=== PATIENT | female | born 1950 | race Hispanic/Latino ===

== ENCOUNTER → 2023-03-28 | Emergency (ER) | payer OTHER ==
[~2023-03-28] MED LIST: MAGNESIUM SULFATE 1 gm IVPB 1 GM/100 ML BAG IV ONE; NA CHLORIDE 0.9% 500 ML ONE; cloNIDine HCL 0.1 MG TAB ONE
--- OUTSIDE RECORDS SUMMARY | 2023-03-28 16:22 | XMS REPORT | Continuity of Care Document ---
Author Name Unknown Address [address] [facility] [address] [place] [address] [facility] Address [address] [facility] 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 Name Role Phone SIRENA EVERETT Primary Care Physician YAZAN Larson Attending Clinician Unavailab YAZAN Laird Attending Clinician Unavailab lal Doctor Unassigned, Rodney Attending Clinician U Sirena Oconnor NP Attending Clinician Pob, [facility] Main Attending Clinician SIRENA Perales Attending Clinician Gila lal Payers Payer Name Policy Type Policy Number Effective Date Expirati on Date Source MEDICARE PART A \\T\\ B [id number] 2014 00:00:00 [facility] [id number] 2023 00:00:00 [place] [id number] 2023 00:00:00 Problems Condition Name Condition Details Condition Category Status Onset Date Resolution Date Last Treatment Date Treating Clinician Comments Source Type 2 diabetes mellitus without complicati on, with long-term current use of insulin Type 2 diabetes mellitus without complicati on, with long-term current use of insulin Disease Active 2022-04 00:00: 00 [facility] Rheumatoid arthritis involving multiple sites, unspecifie d whether rheumatoid factor present Rheumatoid arthritis involving multiple sites, unspecifie d whether rheumatoid factor present Disease Active 2022-04 00:00: 00 [facility] Allergies, Adverse Reactions, Alerts Allergy Name Allergy Type Status Severity Reaction(s) Onset Date Inactive Date Treating Clinician Comments Source NO KNOWN ALLERGIE S Drug Class Active [facility] Social History Social Habit Start Date Stop Date Quantity Comments [facility] use and exposure 2023-03-13 00:00:00 2023-03-13 00:00:00 Smokeless tobacco non-user [facility] Alcohol intake 2023-03-13 00:00:00 2023-03-13 00:00:00 Ex-drinker (finding) [facility] History of Social function 2023-03-13 00:00:00 2023-03-13 00:00:[address] [facility] Sex Assigned At 1950 00:00:00 1950 00:00:[address] [facility] Smoking Status Start Date Stop Date Source Tobacco smoking consumption unknown [facility] Never smoked tobacco [facility] Medications Ordered Medication Name Filled Medication Name Start Date Stop Date Current Medication? Ordering Clinician Indication Dosage Frequency Signature (SIG) Comments Components Source benzonatate (TESSALON PERLES) 100 mg capsule 2022-04 00:00: 00 Yes [id number] 100mg Take 1 capsule by mouth every 8 (eight) hours as needed for Cough. [facility] pregabalin 25 mg capsule 2022-04 00:00: 00 Yes [id number] 25mg Take 1 capsule by mouth in the morning and 1 capsule at noon and 1 capsule in the evening. [facility] albuterol 90 mcg/actuati on inhaler 2022-04 00:00: 00 Yes [id number] 2{puff} Inhale 2 Puffs every 4 (four) hours as needed for Wheezing, Shortness of Breath or Bronchospa sm. [facility] guaiFENesin (MUCINEX FAST-MAX CHEST-CONGE ST) 100 mg/5 mL solution 2022-04 00:00: 00 Yes [id number] 200mg Take 10 mL by mouth every 4 (four) hours as needed for Cough. [facility] benzonatate (TESSALON PERLES) 100 mg capsule 2022-04 00:00: 00 Yes [id number] 100mg Take 1 capsule by mouth every 8 (eight) hours as needed for Cough. [facility] pregabalin 25 mg capsule 2022-04 00:00: 00 Yes [id number] 25mg Take 1 capsule by mouth in the morning and 1 capsule at noon and 1 capsule in the evening. [facility] albuterol 90 mcg/actuati on inhaler 2022-04 00:00: 00 Yes [id number] 2{puff} Inhale 2 Puffs every 4 (four) hours as needed for Wheezing, Shortness of Breath or Bronchospa sm. [facility] guaiFENesin (MUCINEX FAST-MAX CHEST-CONGE ST) 100 mg/5 mL solution 2022-04 00:00: 00 Yes [id number] 200mg Take 10 mL by mouth every 4 (four) hours as needed for Cough. [facility] traMADoL 50 mg tablet 2022-04 00:00: 00 Yes [id number] 50mg Take 1 tablet by mouth 2 (two) times daily with meals as needed for Pain (scale 7-10). Indication s: chronic pain, RA/OA [facility] traMADoL 50 mg tablet 2022-04 00:00: 00 Yes [id number] 50mg Take 1 tablet by mouth 2 (two) times daily with meals as needed for Pain (scale 7-10). Indication s: chronic pain, RA/OA [facility] traMADoL 50 mg tablet 2022-04 00:00: 00 Yes [id number] 50mg Take 1 tablet by mouth 2 (two) times daily with meals as needed for Pain (scale 7-10). Indication s: chronic pain, RA/OA [facility] traMADoL 50 mg tablet 2022-04 00:00: 00 Yes [id number] 50mg Take 1 tablet by mouth 2 (two) times daily with meals as needed for Pain (scale 7-10). Indication s: chronic pain, RA/OA [facility] traMADoL 50 mg tablet 2022-04 00:00: 00 Yes [id number] 50mg Take 1 tablet by mouth 2 (two) times daily with meals as needed for Pain (scale 7-10). Indication s: chronic pain, RA/OA [facility] hydroxychlo roquine 200 mg tablet 2022-04 00:00: 00 Yes [id number] 200mg Take 1 tablet by mouth in the morning. [facility] tra[facility] mg tablet 2022-04 00:00: 00 Yes [id number] 50mg Take 1 tablet by mouth 2 (two) times daily with meals as needed for Pain (scale 7-10). Indication s: chronic pain, RA [facility] meloxicam 15 mg tablet 2022-04 00:00: 00 Yes [id number] 15mg Take 1 tablet by mouth once daily as needed for Pain or Inflammati on. [facility] Diclofenac Sodium (VOLTAREN) 1 % gel 2022-04 00:00: 00 Yes [id number] Take 2-4 grams three times a day as needed for pain [facility] hydroxychlo roquine 200 mg tablet 2022-04 00:00: 00 Yes [id number] 200mg Take 1 tablet by mouth in the morning. [facility] traMADoL 50 mg tablet 2022-04 00:00: 00 Yes [id number] 50mg Take 1 tablet by mouth 2 (two) times daily with meals as needed for Pain (scale 7-10). Indication s: chronic pain, RA [facility] meloxicam 15 mg tablet 2022-04 00:00: 00 Yes [id number] 15mg Take 1 tablet by mouth once daily as needed for Pain or Inflammati on. [facility] Diclofenac Sodium (VOLTAREN) 1 % gel 2022-04 00:00: 00 Yes [id number] Take 2-4 grams three times a day as needed for pain [facility] hydroxychlo roquine 200 mg tablet 2022-04 00:00: 00 Yes [id number] 200mg Take 1 tablet by mouth in the morning. [facility] traMADoL 50 mg tablet 2022-04 00:00: 00 Yes [id number] 50mg Take 1 tablet by mouth 2 (two) times daily with meals as needed for Pain (scale 7-10). Indication s: chronic pain, RA [facility] meloxicam 15 mg tablet 2022-04 00:00: 00 Yes [id number] 15mg Take 1 tablet by mouth once daily as needed for Pain or Inflammati on. [facility] Diclofenac Sodium (VOLTAREN) 1 % gel 2022-04 00:00: 00 Yes [id number] Take 2-4 grams three times a day as needed for pain [facility] hydroxychlo roquine 200 mg tablet 2022-04 00:00: 00 Yes [id number] 200mg Take 1 tablet by mouth in the morning. [facility] tra[facility]AD[facility] 50 mg tablet 2022-04 00:00: 00 Yes [id number] 50mg Take 1 tablet by mouth 2 (two) times daily with meals as needed for Pain (scale 7-10). Indication s: chronic pain, RA [facility] meloxicam 15 mg tablet 2022-04 00:00: 00 Yes [id number] 15mg Take 1 tablet by mouth once daily as needed for Pain or Inflammati on. [facility] Diclofenac Sodium (VOLTAREN) 1 % gel 2022-04 00:00: 00 Yes [id number] Take 2-4 grams three times a day as needed for pain [facility] hydroxychlo roquine 200 mg tablet 2022-04 00:00: 00 Yes [id number] 200mg Take 1 tablet by mouth in the morning. [facility] traMADoL 50 mg tablet 2022-04 00:00: 00 Yes [id number] 50mg Take 1 tablet by mouth 2 (two) times daily with meals as needed for Pain (scale 7-10). Indication s: chronic pain, RA [facility] mel[facility]am [facility] mg tablet 2022-04 00:00: 00 Yes [id number] 15mg Take 1 tablet by mouth once daily as needed for Pain or Inflammati on. [facility] Diclofenac Sodium (VOLTAREN) 1 % gel 2022-04 00:00: 00 Yes [id number] Take 2-4 grams three times a day as needed for pain [facility] hydroxychlo roquine 200 mg tablet 2022-04 00:00: 00 Yes [id number] 200mg Take 1 tablet by mouth in the morning. [facility] tra[facility] 50 mg tablet 2022-04 00:00: 00 Yes [id number] 50mg Take 1 tablet by mouth 2 (two) times daily with meals as needed for Pain (scale 7-10). Indication s: chronic pain, RA [facility] meloxicam 15 mg tablet 2022-04 00:00: 00 Yes [id number] 15mg Take 1 tablet by mouth once daily as needed for Pain or Inflammati on. [facility] Diclofenac Sodium (VOLTAREN) 1 % gel 2022-04 00:00: 00 Yes [id number] Take 2-4 grams three times a day as needed for pain [facility] hydroxychlo roquine 200 mg tablet 2022-04 00:00: 00 Yes [id number] 200mg Take 1 tablet by mouth in the morning. [facility] traMADoL 50 mg tablet 2022-04 00:00: 00 Yes [id number] 50mg Take 1 tablet by mouth 2 (two) times daily with meals as needed for Pain (scale 7-10). Indication s: chronic pain, RA [facility] meloxicam 15 mg tablet 2022-04 00:00: 00 Yes [id number] 15mg Take 1 tablet by mouth once daily as needed for Pain or Inflammati on. [facility] hydroxychlo roquine 200 mg tablet 2022-04 00:00: 00 Yes [id number] 200mg Take 1 tablet by mouth in the morning. [facility] traMADoL 50 mg tablet 2022-04 00:00: 00 Yes [id number] 50mg Take 1 tablet by mouth 2 (two) times daily with meals as needed for Pain (scale 7-10). Indication s: chronic pain, RA [facility] meloxicam 15 mg tablet 2022-04 00:00: 00 Yes [id number] 15mg Take 1 tablet by mouth once daily as needed for Pain or Inflammati on. [facility] Diclofenac Sodium (VOLTAREN) 1 % gel 2022-04 00:00: 00 Yes [id number] Take 2-4 grams three times a day as needed for pain [facility] hydroxychlo roquine 200 mg tablet 2022-04 00:00: 00 Yes [id number] 200mg Take 1 tablet by mouth in the morning. [facility] tra[facility] 50 mg tablet 2022-04 00:00: 00 Yes [id number] 50mg Take 1 tablet by mouth 2 (two) times daily with meals as needed for Pain (scale 7-10). Indication s: chronic pain, RA [facility] meloxicam 15 mg tablet 2022-04 00:00: 00 Yes [id number] 15mg Take 1 tablet by mouth once daily as needed for Pain or Inflammati on. [facility] Diclofenac Sodium (VOLTAREN) 1 % gel 2022-04 00:00: 00 Yes [id number] Take 2-4 grams three times a day as needed for pain [facility] hydroxychlo roquine 200 mg tablet 2022-04 00:00: 00 Yes [id number] 200mg Take 1 tablet by mouth in the morning. [facility] traMAD[facility] 50 mg tablet 2022-04 00:00: 00 Yes [id number] 50mg Take 1 tablet by mouth 2 (two) times daily with meals as needed for Pain (scale 7-10). Indication s: chronic pain, RA [facility] meloxicam 15 mg tablet 2022-04 00:00: 00 Yes [id number] 15mg Take 1 tablet by mouth once daily as needed for Pain or Inflammati on. [facility] Diclofenac Sodium (VOLTAREN) 1 % gel 2022-04 00:00: 00 Yes [id number] Take 2-4 grams three times a day as needed for pain [facility] hydroxychlo roquine 200 mg tablet 2022-04 00:00: 00 Yes [id number] 200mg Take 1 tablet by mouth in the morning. [facility] traMADoL 50 mg tablet 2022-04 00:00: 00 Yes [id number] 50mg Take 1 tablet by mouth 2 (two) times daily with meals as needed for Pain (scale 7-10). Indication s: chronic pain, RA [facility] meloxicam 15 mg tablet 2022-04 00:00: 00 Yes [id number] 15mg Take 1 tablet by mouth once daily as needed for Pain or Inflammati on. [facility] Diclofenac Sodium (VOLTAREN) 1 % gel 2022-04 00:00: 00 Yes [id number] Take 2-4 grams three times a day as needed for pain [facility] hydroxychlo roquine 200 mg tablet 2022-04 00:00: 00 Yes [id number] 200mg Take 1 tablet by mouth in the morning. [facility] meloxicam 15 mg tablet 2022-04 00:00: 00 Yes [id number] 15mg Take 1 tablet by mouth once daily as needed for Pain or Inflammati on. [facility] Diclofenac Sodium (VOLTAREN) 1 % gel 2022-04 00:00: 00 Yes [id number] Take 2-4 grams three times a day as needed for pain [facility] hydroxychlo roquine 200 mg tablet 2022-04 00:00: 00 Yes [id number] 200mg Take 1 tablet by mouth in the morning. [facility] meloxicam 15 mg tablet 2022-04 00:00: 00 Yes [id number] 15mg Take 1 tablet by mouth once daily as needed for Pain or Inflammati on. [facility] Diclofenac Sodium (VOLTAREN) 1 % gel 2022-04 00:00: 00 Yes [id number] Take 2-4 grams three times a day as needed for pain [facility] hydroxychlo roquine 200 mg tablet 2022-04 00:00: 00 Yes [id number] 200mg Take 1 tablet by mouth in the morning. [facility] mel[facility] mg tablet 2022-04 00:00: 00 Yes [id number] 15mg Take 1 tablet by mouth once daily as needed for Pain or Inflammati on. [facility] Diclofenac Sodium (VOLTAREN) 1 % gel 2022-04 00:00: 00 Yes [id number] Take 2-4 grams three times a day as needed for pain [facility] hydroxychlo roquine 200 mg tablet 2022-04 00:00: 00 Yes [id number] 200mg Take 1 tablet by mouth in the morning. [facility] mel[facility]am [facility] mg tablet 2022-04 00:00: 00 Yes [id number] 15mg Take 1 tablet by mouth once daily as needed for Pain or Inflammati on. [facility] Diclofenac Sodium (VOLTAREN) 1 % gel 2022-04 00:00: 00 Yes [id number] Take 2-4 grams three times a day as needed for pain [facility] hydroxychlo roquine 200 mg tablet 2022-04 00:00: 00 Yes [id number] 200mg Take 1 tablet by mouth in the morning. [facility] meloxicam 15 mg tablet 2022-04 00:00: 00 Yes [id number] 15mg Take 1 tablet by mouth once daily as needed for Pain or Inflammati on. [facility] Diclofenac Sodium (VOLTAREN) 1 % gel 2022-04 00:00: 00 Yes [id number] Take 2-4 grams three times a day as needed for pain [facility] hydroxychlo roquine 200 mg tablet 2022-04 00:00: 00 Yes [id number] 200mg Take 1 tablet by mouth in the morning. [facility] traMADoL 50 mg tablet 2022-04 00:00: 00 Yes [id number] 50mg Take 1 tablet by mouth 2 (two) times daily with meals as needed for Pain (scale 7-10). Indication s: chronic pain, RA [facility] mel[facility]am [facility] mg tablet 2022-04 00:00: 00 Yes [id number] 15mg Take 1 tablet by mouth once daily as needed for Pain or Inflammati on. [facility] traMADoL 50 mg tablet 2022-04 00:00: 00 02-22 00:00 :00 No [id number] 50mg Take 1 tablet by mouth 2 (two) times daily with meals as needed for Pain (scale 7-10). Indication s: chronic pain, RA [facility] aspirin (ADULT LOW DOSE ASPIRIN) 81 mg EC tablet 2022-04 00:00: 00 Yes [id number] 81mg Take 1 tablet by mouth in the morning. [facility] aspirin (ADULT LOW DOSE ASPIRIN) 81 mg EC tablet 2022-04 00:00: 00 Yes [id number] 81mg Take 1 tablet by mouth in the morning. [facility] aspirin (ADULT LOW DOSE ASPIRIN) 81 mg EC tablet 2022-04 00:00: 00 Yes [id number] 81mg Take 1 tablet by mouth in the morning. [facility] aspirin (ADULT LOW DOSE ASPIRIN) 81 mg EC tablet 2022-04 00:00: 00 Yes [id number] 81mg Take 1 tablet by mouth in the morning. [facility] aspirin (ADULT LOW DOSE ASPIRIN) 81 mg EC tablet 2022-04 00:00: 00 Yes [id number] 81mg Take 1 tablet by mouth in the morning. [facility] aspirin (ADULT LOW DOSE ASPIRIN) 81 mg EC tablet 2022-04 00:00: 00 Yes [id number] 81mg Take 1 tablet by mouth in the morning. [facility] aspirin (ADULT LOW DOSE ASPIRIN) 81 mg EC tablet 2022-04 00:00: 00 Yes [id number] 81mg Take 1 tablet by mouth in the morning. [facility] aspirin (ADULT LOW DOSE ASPIRIN) 81 mg EC tablet 2022-04 00:00: 00 Yes [id number] 81mg Take 1 tablet by mouth in the morning. [facility] aspirin (ADULT LOW DOSE ASPIRIN) 81 mg EC tablet 2022-04 00:00: 00 Yes [id number] 81mg Take 1 tablet by mouth in the morning. [facility] aspirin (ADULT LOW DOSE ASPIRIN) 81 mg EC tablet 2022-04 00:00: 00 Yes [id number] 81mg Take 1 tablet by mouth in the morning. [facility] aspirin (ADULT LOW DOSE ASPIRIN) 81 mg EC tablet 2022-04 00:00: 00 Yes [id number] 81mg Take 1 tablet by mouth in the morning. [facility] aspirin (ADULT LOW DOSE ASPIRIN) 81 mg EC tablet 2022-04 00:00: 00 Yes [id number] 81mg Take 1 tablet by mouth in the morning. [facility] aspirin (ADULT LOW DOSE ASPIRIN) 81 mg EC tablet 2022-04 00:00: 00 Yes [id number] 81mg Take 1 tablet by mouth in the morning. [facility] aspirin (ADULT LOW DOSE ASPIRIN) 81 mg EC tablet 2022-04 00:00: 00 Yes [id number] 81mg Take 1 tablet by mouth in the morning. [facility] aspirin (ADULT LOW DOSE ASPIRIN) 81 mg EC tablet 2022-04 00:00: 00 Yes [id number] 81mg Take 1 tablet by mouth in the morning. [facility] aspirin (ADULT LOW DOSE ASPIRIN) 81 mg EC tablet 2022-04 00:00: 00 Yes [id number] 81mg Take 1 tablet by mouth in the morning. [facility] aspirin (ADULT LOW DOSE ASPIRIN) 81 mg EC tablet 2022-04 00:00: 00 Yes [id number] 81mg Take 1 tablet by mouth in the morning. [facility] aspirin (ADULT LOW DOSE ASPIRIN) 81 mg EC tablet 2022-04 00:00: 00 Yes [id number] 81mg Take 1 tablet by mouth in the morning. [facility] aspirin (ADULT LOW DOSE ASPIRIN) 81 mg EC tablet 2022-04 00:00: 00 Yes [id number] 81mg Take 1 tablet by mouth in the morning. [facility] FARXIGA 10 mg tablet 2022-04 00:00: 00 Yes 10mg Take 1 tablet by mouth in the morning. [facility] pravastatin 40 mg tablet 2022-04 00:00: 00 Yes 40mg Take 1 tablet by mouth in the morning. [facility] FARXIGA 10 mg tablet 2022-04 00:00: 00 Yes 10mg Take 1 tablet by mouth in the morning. [facility] pravastatin 40 mg tablet 2022-04 00:00: 00 Yes 40mg Take 1 tablet by mouth in the morning. [facility] FARX[facility]A 10 mg tablet 2022-04 00:00: 00 Yes 10mg Take 1 tablet by mouth in the morning. [facility] FARXIGA 10 mg tablet 2022-04 00:00: 00 Yes 10mg Take 1 tablet by mouth in the morning. [facility] pravastatin 40 mg tablet 2022-04 00:00: 00 Yes 40mg Take 1 tablet by mouth in the morning. [facility] FARXIGA 10 mg tablet 2022-04 00:00: 00 Yes 10mg Take 1 tablet by mouth in the morning. [facility] pravastatin 40 mg tablet 2022-04 00:00: 00 Yes 40mg Take 1 tablet by mouth in the morning. [facility] FARXIGA 10 mg tablet 2022-04 00:00: 00 Yes 10mg Take 1 tablet by mouth in the morning. [facility] pravastatin 40 mg tablet 2022-04 00:00: 00 Yes 40mg Take 1 tablet by mouth in the morning. [facility] pravastatin 40 mg tablet 2022-04 00:00: 00 Yes 40mg Take 1 tablet by mouth in the morning. [facility] FARXIGA 10 mg tablet 2022-04 00:00: 00 Yes 10mg Take 1 tablet by mouth in the morning. [facility] pravastatin 40 mg tablet 2022-04 00:00: 00 Yes 40mg Take 1 tablet by mouth in the morning. [facility] FARXIGA 10 mg tablet 2022-04 00:00: 00 Yes 10mg Take 1 tablet by mouth in the morning. [facility] pravastatin 40 mg tablet 2022-04 00:00: 00 Yes 40mg Take 1 tablet by mouth in the morning. [facility] FARXIGA 10 mg tablet 2022-04 00:00: 00 Yes 10mg Take 1 tablet by mouth in the morning. [facility] pravastatin 40 mg tablet 2022-04 00:00: 00 Yes 40mg Take 1 tablet by mouth in the morning. [facility] FARXIGA 10 mg tablet 2022-04 00:00: 00 Yes 10mg Take 1 tablet by mouth in the morning. [facility] pravastatin 40 mg tablet 2022-04 00:00: 00 Yes 40mg Take 1 tablet by mouth in the morning. [facility] FARXIGA 10 mg tablet 2022-04 00:00: 00 Yes 10mg Take 1 tablet by mouth in the morning. [facility] pravastatin 40 mg tablet 2022-04 00:00: 00 Yes 40mg Take 1 tablet by mouth in the morning. [facility] FARXIGA 10 mg tablet 2022-04 00:00: 00 Yes 10mg Take 1 tablet by mouth in the morning. [facility] pravastatin 40 mg tablet 2022-04 00:00: 00 Yes 40mg Take 1 tablet by mouth in the morning. [facility] FARXIGA 10 mg tablet 2022-04 00:00: 00 Yes 10mg Take 1 tablet by mouth in the morning. [facility] pravastatin 40 mg tablet 2022-04 00:00: 00 Yes 40mg Take 1 tablet by mouth in the morning. [facility] FARXIGA 10 mg tablet 2022-04 00:00: 00 Yes 10mg Take 1 tablet by mouth in the morning. [facility] pravastatin 40 mg tablet 2022-04 00:00: 00 Yes 40mg Take 1 tablet by mouth in the morning. [facility] FARXIGA 10 mg tablet 2022-04 00:00: 00 Yes 10mg Take 1 tablet by mouth in the morning. [facility] pravastatin 40 mg tablet 2022-04 00:00: 00 Yes 40mg Take 1 tablet by mouth in the morning. [facility] FARXIGA 10 mg tablet 2022-04 00:00: 00 Yes 10mg Take 1 tablet by mouth in the morning. [facility] pravastatin 40 mg tablet 2022-04 00:00: 00 Yes 40mg Take 1 tablet by mouth in the morning. [facility] FARXIGA 10 mg tablet 2022-04 00:00: 00 Yes 10mg Take 1 tablet by mouth in the morning. [facility] pravastatin 40 mg tablet 2022-04 00:00: 00 Yes 40mg Take 1 tablet by mouth in the morning. [facility] FARXIGA 10 mg tablet 2022-04 00:00: 00 Yes 10mg Take 1 tablet by mouth in the morning. [facility] pravastatin 40 mg tablet 2022-04 00:00: 00 Yes 40mg Take 1 tablet by mouth in the morning. [facility] FARXIGA 10 mg tablet 2022-04 00:00: 00 Yes 10mg Take 1 tablet by mouth in the morning. [facility] pravastatin 40 mg tablet 2022-04 00:00: 00 Yes 40mg Take 1 tablet by mouth in the morning. [facility] NOVOLOG FLEXPEN U-100 INSULIN 100 unit/mL (3 mL) injection 2022-04 00:00: 00 Yes [facility] NOVOLOG FLEXPEN U-100 INSULIN 100 unit/mL (3 mL) injection 2022-04 00:00: 00 Yes [facility] NOVOLOG FLEXPEN U-100 INSULIN 100 unit/mL (3 mL) injection 2022-04 00:00: 00 Yes [facility] NOVOLOG FLEXPEN U-100 INSULIN 100 unit/mL (3 mL) injection 2022-04 00:00: 00 Yes [facility] NOVOLOG FLEXPEN U-100 INSULIN 100 unit/mL (3 mL) injection 2022-04 00:00: 00 Yes [facility] NOVOLOG FLEXPEN U-100 INSULIN 100 unit/mL (3 mL) injection 2022-04 00:00: 00 Yes [facility] NOVOLOG FLEXPEN U-100 INSULIN 100 unit/mL (3 mL) injection 2022-04 00:00: 00 Yes [facility] NOVOLOG FLEXPEN U-100 INSULIN 100 unit/mL (3 mL) injection 2022-04 00:00: 00 Yes [facility] NOVOLOG FLEXPEN U-100 INSULIN 100 unit/mL (3 mL) injection 2022-04 00:00: 00 Yes [facility] NOVOLOG FLEXPEN U-100 INSULIN 100 unit/mL (3 mL) injection 2022-04 00:00: 00 Yes [facility] NOVOLOG FLEXPEN U-100 INSULIN 100 unit/mL (3 mL) injection 2022-04 00:00: 00 Yes [facility] NOVOLOG FLEXPEN U-100 INSULIN 100 unit/mL (3 mL) injection 2022-04 00:00: 00 Yes [facility] NOVOLOG FLEXPEN U-100 INSULIN 100 unit/mL (3 mL) injection 2022-04 00:00: 00 Yes [facility] NOVOLOG FLEXPEN U-100 INSULIN 100 unit/mL (3 mL) injection 2022-04 00:00: 00 Yes [facility] NOVOLOG FLEXPEN U-100 INSULIN 100 unit/mL (3 mL) injection 2022-04 00:00: 00 Yes [facility] NOVOLOG FLEXPEN U-100 INSULIN 100 unit/mL (3 mL) injection 2022-04 00:00: 00 Yes [facility] NOVOLOG FLEXPEN U-100 INSULIN 100 unit/mL (3 mL) injection 2022-04 00:00: 00 Yes [facility] NOVOLOG FLEXPEN U-100 INSULIN 100 unit/mL (3 mL) injection 2022-04 00:00: 00 Yes [facility] NOVOLOG FLEXPEN U-100 INSULIN 100 unit/mL (3 mL) injection 2022-04 00:00: 00 Yes [facility] TRESIBA FLEXTOUCH U-100 100 unit/mL (3 mL) InPn 2022-04 0 00:00: 00 Yes 20mg Take 20 mg by mouth in the morning. [facility] TRESIBA FLEXTOUCH U-100 100 unit/mL (3 mL) [facility] 2022-04 0 00:00: 00 Yes 20mg Take 20 mg by mouth in the morning. [facility] TRESIBA FLEXTOUCH U-100 100 unit/mL (3 mL) [facility] 2022-04 00:00: 00 Yes 20mg Take 20 mg by mouth in the morning. [facility] TRESIBA FLEXTOUCH U-100 100 unit/mL (3 mL) [facility] 2022-04 00:00: 00 Yes 20mg Take 20 mg by mouth in the morning. [facility] TRESIBA FLEXTOUCH U-100 100 unit/mL (3 mL) [facility] 2022-04 00:00: 00 Yes 20mg Take 20 mg by mouth in the morning. [facility] FLEXTOU[facility] U-100 100 unit/mL (3 mL) [facility] 2022-04 00:00: 00 Yes 20mg Take 20 mg by mouth in the morning. [facility] TRESIBA FLEXTOUCH U-100 100 unit/mL (3 mL) [facility] 2022-04 00:00: 00 Yes 20mg Take 20 mg by mouth in the morning. [facility] TRESIBA FLEXTOUCH U-100 100 unit/mL (3 mL) [facility] 2022-04 00:00: 00 Yes 20mg Take 20 mg by mouth in the morning. [facility] TRESIBA FLEXTOUCH U-100 100 unit/mL (3 mL) [facility] 2022-04 00:00: 00 Yes 20mg Take 20 mg by mouth in the morning. [facility] TRESIBA FLEXTOUCH U-100 100 unit/mL (3 mL) [facility] 2022-04 00:00: 00 Yes 20mg Take 20 mg by mouth in the morning. [facility] TRESIBA FLEXTOUCH U-100 100 unit/mL (3 mL) [facility] 2022-04 00:00: 00 Yes 20mg Take 20 mg by mouth in the morning. [facility] TRESIBA FLEXTOUCH U-100 100 unit/mL (3 mL) [facility] 2022-04 00:00: 00 Yes 20mg Take 20 mg by mouth in the morning. [facility] TRESIBA FLEXTOUCH U-100 100 unit/mL (3 mL) [facility] 2022-04 00:00: 00 Yes 20mg Take 20 mg by mouth in the morning. [facility] TRESIBA FLEXTOUCH U-100 100 unit/mL (3 mL) [facility] 2022-04 00:00: 00 Yes 20mg Take 20 mg by mouth in the morning. [facility] TRESIBA FLEXTOUCH U-100 100 unit/mL (3 mL) [facility] 2022-04 00:00: 00 Yes 20mg Take 20 mg by mouth in the morning. [facility] TRESIBA FLEXTOUCH U-100 100 unit/mL (3 mL) [facility] 2022-04 00:00: 00 Yes 20mg Take 20 mg by mouth in the morning. [facility] TRESIBA FLEXTOUCH U-100 100 unit/mL (3 mL) [facility] 2022-04 00:00: 00 Yes 20mg Take 20 mg by mouth in the morning. [facility] TRESIBA FLEXTOUCH U-100 100 unit/mL (3 mL) [facility] 2022-04 00:00: 00 Yes 20mg Take 20 mg by mouth in the morning. [facility] TRESIBA FLEXTOUCH U-100 100 unit/mL (3 mL) [facility] 2022-04 00:00: 00 Yes 20mg Take 20 mg by mouth in the morning. [facility] metFORMIN 1,000 mg tablet 2022-04 00:00: 00 Yes 1000mg Take 1 tablet by mouth in the morning and 1 tablet in the evening. Take with meals. [facility] metFORMIN 1,000 mg tablet 2022-04 00:00: 00 Yes 1000mg Take 1 tablet by mouth in the morning and 1 tablet in the evening. Take with meals. [facility] metFORMIN 1,000 mg tablet 2023-1 0-14 00:00: 00 Yes 1000mg Take 1 tablet by mouth in the morning and 1 tablet in the evening. Take with meals. [facility] metFORMIN 1,000 mg tablet 2023-1 0-14 00:00: 00 Yes 1000mg Take 1 tablet by mouth in the morning and 1 tablet in the evening. Take with meals. [facility] metFORMIN 1,000 mg tablet 2023-1 0-14 00:00: 00 Yes 1000mg Take 1 tablet by mouth in the morning and 1 tablet in the evening. Take with meals. [facility] metFORMIN 1,000 mg tablet 2023-1 0-14 00:00: 00 Yes 1000mg Take 1 tablet by mouth in the morning and 1 tablet in the evening. Take with meals. [facility] metFORMIN 1,000 mg tablet 2023-1 0-14 00:00: 00 Yes 1000mg Take 1 tablet by mouth in the morning and 1 tablet in the evening. Take with meals. [facility] metFORMIN 1,000 mg tablet 2023-1 0-14 00:00: 00 Yes 1000mg Take 1 tablet by mouth in the morning and 1 tablet in the evening. Take with meals. [facility] metFORMIN 1,000 mg tablet 3-1 0-14 00:00: 00 Yes 1000mg Take 1 tablet by mouth in the morning and 1 tablet in the evening. Take with meals. [facility] metFORMIN 1,000 mg tablet 2023-1 0-14 00:00: 00 Yes 1000mg Take 1 tablet by mouth in the morning and 1 tablet in the evening. Take with meals. [facility] metFORMIN 1,000 mg tablet 2023-1 0-14 00:00: 00 Yes 1000mg Take 1 tablet by mouth in the morning and 1 tablet in the evening. Take with meals. [facility] metFORMIN 1,000 mg tablet 2023-1 0-14 00:00: 00 Yes 1000mg Take 1 tablet by mouth in the morning and 1 tablet in the evening. Take with meals. [facility] metFORMIN 1,000 mg tablet 2023-1 0-14 00:00: 00 Yes 1000mg Take 1 tablet by mouth in the morning and 1 tablet in the evening. Take with meals. [facility] metFORMIN 1,000 mg tablet 2022-1 0-14 00:00: 00 Yes 1000mg Take 1 tablet by mouth in the morning and 1 tablet in the evening. Take with meals. [facility] metFORMIN 1,000 mg tablet 2022- 0-14 00:00: 00 Yes 1000mg Take 1 tablet by mouth in the morning and 1 tablet in the evening. Take with meals. [facility] metFORMIN 1,000 mg tablet 2022- 0-14 00:00: 00 Yes 1000mg Take 1 tablet by mouth in the morning and 1 tablet in the evening. Take with meals. [facility] metFORMIN 1,000 mg tablet 2022- 0-14 00:00: 00 Yes 1000mg Take 1 tablet by mouth in the morning and 1 tablet in the evening. Take with meals. [facility] metFORMIN 1,000 mg tablet 2022- 014 00:00: 00 Yes 1000mg Take 1 tablet by mouth in the morning and 1 tablet in the evening. Take with meals. [facility] metFORMIN 1,000 mg tablet 2022- 014 00:00: 00 Yes 1000mg Take 1 tablet by mouth in the morning and 1 tablet in the evening. Take with meals. [facility] BD ULTRA-FINE MICRO PEN NEEDLE 32 gauge x 1/4" Ndle 2022-04 0-07 00:00: 00 Yes USE 1 UNIT SUBCUTANEO USLY TWICE DAILY [facility] BD ULTRA-FINE MICRO PEN NEEDLE 32 gauge x 1/4" Ndle 2022-04 0-07 00:00: 00 Yes USE 1 UNIT SUBCUTANEO USLY TWICE DAILY [facility] BD ULTRA-FINE MICRO PEN NEEDLE 32 gauge x 1/4" Ndle 2022-04 0-07 00:00: 00 Yes USE 1 UNIT SUBCUTANEO USLY TWICE DAILY [facility] BD ULTRA-FINE MICRO PEN NEEDLE 32 gauge x 1/4" Ndle 2022-04 0-07 00:00: 00 Yes USE 1 UNIT SUBCUTANEO USLY TWICE DAILY [facility] BD ULTRA-FINE MICRO PEN NEEDLE 32 gauge x 1/4" Ndle 2022-04 0-07 00:00: 00 Yes USE 1 UNIT SUBCUTANEO USLY TWICE DAILY [facility] BD ULTRA-FINE MICRO PEN NEEDLE 32 gauge x 1/4" Ndle 2022-04 0-07 00:00: 00 Yes USE 1 UNIT SUBCUTANEO USLY TWICE DAILY [facility] BD ULTRA-FINE MICRO PEN NEEDLE 32 gauge x 1/4" Ndle 2022-04 0-07 00:00: 00 Yes USE 1 UNIT SUBCUTANEO USLY TWICE DAILY [facility] BD ULTRA-FINE MICRO PEN NEEDLE 32 gauge x 1/4" Ndle 2022-04 0-07 00:00: 00 Yes USE 1 UNIT SUBCUTANEO USLY TWICE DAILY [facility] BD ULTRA-FINE MICRO PEN NEEDLE 32 gauge x 1/4" Ndle 2022-04 0-07 00:00: 00 Yes USE 1 UNIT SUBCUTANEO USLY TWICE DAILY [facility] BD ULTRA-FINE MICRO PEN NEEDLE 32 gauge x 1/4" Ndle 2022-04 0-07 00:00: 00 Yes USE 1 UNIT SUBCUTANEO USLY TWICE DAILY [facility] BD ULTRA-FINE MICRO PEN NEEDLE 32 gauge x 1/4" Ndle 2022-04 0-07 00:00: 00 Yes USE 1 UNIT SUBCUTANEO USLY TWICE DAILY [facility] BD ULTRA-FINE MICRO PEN NEEDLE 32 gauge x 1/4" Ndle 2022-04 0-07 00:00: 00 Yes USE 1 UNIT SUBCUTANEO USLY TWICE DAILY [facility] BD ULTRA-FINE MICRO PEN NEEDLE 32 gauge x 1/4" Ndle 2022-04 0-07 00:00: 00 Yes USE 1 UNIT SUBCUTANEO USLY TWICE DAILY [facility] BD ULTRA-FINE MICRO PEN NEEDLE 32 gauge x 1/4" Ndle 2022-04 0-07 00:00: 00 Yes USE 1 UNIT SUBCUTANEO USLY TWICE DAILY [facility] BD ULTRA-FINE MICRO PEN NEEDLE 32 gauge x 1/4" Ndle 2022-04 0-07 00:00: 00 Yes USE 1 UNIT SUBCUTANEO USLY TWICE DAILY [facility] BD ULTRA-FINE MICRO PEN NEEDLE 32 gauge x 1/4" Ndle 2022-04 0-07 00:00: 00 Yes USE 1 UNIT SUBCUTANEO USLY TWICE DAILY [facility] BD ULTRA-FINE MICRO PEN NEEDLE 32 gauge x 1/4" Ndle 2022- 0-07 00:00: 00 Yes USE 1 UNIT SUBCUTANEO USLY TWICE DAILY [facility] BD ULTRA-FINE MICRO PEN NEEDLE 32 gauge x 1/4" Ndle 2022-04 0-07 00:00: 00 Yes USE 1 UNIT SUBCUTANEO USLY TWICE DAILY [facility] BD ULTRA-FINE MICRO PEN NEEDLE 32 gauge x 1/4" [place] 2022-04 0-07 00:00: 00 Yes USE 1 UNIT SUBCUTANEO USLY TWICE DAILY [facility] celecoxib 200 mg capsule 2023-0 12-30 00:00: 00 Yes 200mg Take 1 capsule by mouth in the morning. [facility] celecoxib 200 mg capsule 2023-0 12-30 00:00: 00 Yes 200mg Take 1 capsule by mouth in the morning. [facility] celecoxib 200 mg capsule 2023-0 12-30 00:00: 00 Yes 200mg Take 1 capsule by mouth in the morning. [facility] celecoxib 200 mg capsule 2023-0 12-30 00:00: 00 Yes 200mg Take 1 capsule by mouth in the morning. [facility] celecoxib 200 mg capsule 2023-0 12-30 00:00: 00 Yes 200mg Take 1 capsule by mouth in the morning. [facility] celecoxib 200 mg capsule 2023-0 12-30 00:00: 00 Yes 200mg Take 1 capsule by mouth in the morning. [facility] celecoxib 200 mg capsule 2023-0 12-30 00:00: 00 Yes 200mg Take 1 capsule by mouth in the morning. [facility] celecoxib 200 mg capsule 2023-0 12-30 00:00: 00 Yes 200mg Take 1 capsule by mouth in the morning. [facility] celecoxib 200 mg capsule 2023-0 12-30 00:00: 00 Yes 200mg Take 1 capsule by mouth in the morning. [facility] celecoxib 200 mg capsule 3-0 12-30 00:00: 00 Yes 200mg Take 1 capsule by mouth in the morning. [facility] celecoxib 200 mg capsule 3-0 12-30 00:00: 00 Yes 200mg Take 1 capsule by mouth in the morning. [facility] celecoxib 200 mg capsule 3-0 12-30 00:00: 00 Yes 200mg Take 1 capsule by mouth in the morning. [facility] celecoxib 200 mg capsule 3-0 12-30 00:00: 00 Yes 200mg Take 1 capsule by mouth in the morning. [facility] celecoxib 200 mg capsule 3-0 12-30 00:00: 00 Yes 200mg Take 1 capsule by mouth in the morning. [facility] celecoxib 200 mg capsule 3-0 12-30 00:00: 00 Yes 200mg Take 1 capsule by mouth in the morning. [facility] celecoxib 200 mg capsule 3-0 12-30 00:00: 00 Yes 200mg Take 1 capsule by mouth in the morning. [facility] celecoxib 200 mg capsule 3-0 12-30 00:00: 00 03-13 00:00 :00 No 200mg Take 1 capsule by mouth in the morning. [facility] celecoxib 200 mg capsule 3-0 12-30 00:00: 00 03-13 00:00 :00 No 200mg Take 1 capsule by mouth in the morning. [facility] ipratropium -albuteroL 0.5 mg-3 mg(2.5 mg base)/3 mL nebulizer solution 0 12-22 00:00: 00 Yes 3mL Inhale 3 mL 3 (three) times daily as needed for Chest tightness or Shortness of Breath. [facility] ipratropium -albuteroL 0.5 mg-3 mg(2.5 mg base)/3 mL nebulizer solution 2022-0 12-22 00:00: 00 Yes 3mL Inhale 3 mL 3 (three) times daily as needed for Chest tightness or Shortness of Breath. [facility] ipratropium -albuteroL 0.5 mg-3 mg(2.5 mg base)/3 mL nebulizer solution 0 15 00:00: 00 Yes 3mL Inhale 3 mL 3 (three) times daily as needed for Chest tightness or Shortness of Breath. [facility] ipratropium -albuteroL 0.5 mg-3 mg(2.5 mg base)/3 mL nebulizer solution 0 15 00:00: 00 Yes 3mL Inhale 3 mL 3 (three) times daily as needed for Chest tightness or Shortness of Breath. [facility] ipratropium -albuteroL 0.5 mg-3 mg(2.5 mg base)/3 mL nebulizer solution 0 12-22 00:00: 00 Yes 3mL Inhale 3 mL 3 (three) times daily as needed for Chest tightness or Shortness of Breath. [facility] ipratropium -albuteroL 0.5 mg-3 mg(2.5 mg base)/3 mL nebulizer solution 0 12-22 00:00: 00 Yes 3mL Inhale 3 mL 3 (three) times daily as needed for Chest tightness or Shortness of Breath. [facility] ipratropium -albuteroL 0.5 mg-3 mg(2.5 mg base)/3 mL nebulizer solution 0 15 00:00: 00 Yes 3mL Inhale 3 mL 3 (three) times daily as needed for Chest tightness or Shortness of Breath. [facility] ipratropium -albuteroL 0.5 mg-3 mg(2.5 mg base)/3 mL nebulizer solution 0 15 00:00: 00 Yes 3mL Inhale 3 mL 3 (three) times daily as needed for Chest tightness or Shortness of Breath. [facility] ipratropium -albuteroL 0.5 mg-3 mg(2.5 mg base)/3 mL nebulizer solution 0 15 00:00: 00 Yes 3mL Inhale 3 mL 3 (three) times daily as needed for Chest tightness or Shortness of Breath. [facility] ipratropium -albuteroL 0.5 mg-3 mg(2.5 mg base)/3 mL nebulizer solution 2022-0 15 00:00: 00 Yes 3mL Inhale 3 mL 3 (three) times daily as needed for Chest tightness or Shortness of Breath. [facility] ipratropium -albuteroL 0.5 mg-3 mg(2.5 mg base)/3 mL nebulizer solution 0 15 00:00: 00 Yes 3mL Inhale 3 mL 3 (three) times daily as needed for Chest tightness or Shortness of Breath. [facility] ipratropium -albuteroL 0.5 mg-3 mg(2.5 mg base)/3 mL nebulizer solution 0 12-22 00:00: 00 Yes 3mL Inhale 3 mL 3 (three) times daily as needed for Chest tightness or Shortness of Breath. [facility] ipratropium -albuteroL 0.5 mg-3 mg(2.5 mg base)/3 mL nebulizer solution 0 12-22 00:00: 00 Yes 3mL Inhale 3 mL 3 (three) times daily as needed for Chest tightness or Shortness of Breath. [facility] ipratropium -albuteroL 0.5 mg-3 mg(2.5 mg base)/3 mL nebulizer solution 2022-0 15 00:00: 00 Yes 3mL Inhale 3 mL 3 (three) times daily as needed for Chest tightness or Shortness of Breath. [facility] ipratropium -albuteroL 0.5 mg-3 mg(2.5 mg base)/3 mL nebulizer solution 0 -15 00:00: 00 Yes 3mL Inhale 3 mL 3 (three) times daily as needed for Chest tightness or Shortness of Breath. [facility] ipratropium -albuteroL 0.5 mg-3 mg(2.5 mg base)/3 mL nebulizer solution 2022-0 -15 00:00: 00 Yes 3mL Inhale 3 mL 3 (three) times daily as needed for Chest tightness or Shortness of Breath. [facility] ipratropium -albuteroL 0.5 mg-3 mg(2.5 mg base)/3 mL nebulizer solution 12-22 00:00: 00 Yes 3mL Inhale 3 mL 3 (three) times daily as needed for Chest tightness or Shortness of Breath. [facility] ipratropium -albuteroL 0.5 mg-3 mg(2.5 mg base)/3 mL nebulizer solution 12-22 00:00: 00 Yes 3mL Inhale 3 mL 3 (three) times daily as needed for Chest tightness or Shortness of Breath. [facility] ipratropium -albuteroL 0.5 mg-3 mg(2.5 mg base)/3 mL nebulizer solution 12-22 00:00: 00 Yes 3mL Inhale 3 mL 3 (three) times daily as needed for Chest tightness or Shortness of Breath. [facility] losartan-hy drochloroth iazide 100-12.5 mg per tablet 11-27 00:00: 00 Yes 1{tbl} Take 1 tablet by mouth in the morning. [facility] losartan-hy drochloroth iazide 100-12.5 mg per tablet 11-27 00:00: 00 Yes 1{tbl} Take 1 tablet by mouth in the morning. [facility] losartan-hy drochloroth iazide 100-12.5 mg per tablet 11-27 00:00: 00 Yes 1{tbl} Take 1 tablet by mouth in the morning. [facility] losartan-hy drochloroth iazide 100-12.5 mg per tablet 11-27 00:00: 00 Yes 1{tbl} Take 1 tablet by mouth in the morning. [facility] losartan-hy drochloroth iazide 100-12.5 mg per tablet 11-27 00:00: 00 Yes 1{tbl} Take 1 tablet by mouth in the morning. [facility] losartan-hy drochloroth iazide 100-12.5 mg per tablet 11-27 00:00: 00 Yes 1{tbl} Take 1 tablet by mouth in the morning. [facility] losartan-hy drochloroth iazide 100-12.5 mg per tablet 0 11-27 00:00: 00 Yes 1{tbl} Take 1 tablet by mouth in the morning. [facility] losartan-hy drochloroth iazide 100-12.5 mg per tablet 0 11-27 00:00: 00 Yes 1{tbl} Take 1 tablet by mouth in the morning. [facility] losartan-hy drochloroth iazide 100-12.5 mg per tablet 0 11-27 00:00: 00 Yes 1{tbl} Take 1 tablet by mouth in the morning. [facility] losartan-hy drochloroth iazide 100-12.5 mg per tablet 0 11-27 00:00: 00 Yes 1{tbl} Take 1 tablet by mouth in the morning. [facility] losartan-hy drochloroth iazide 100-12.5 mg per tablet 0 11-27 00:00: 00 Yes 1{tbl} Take 1 tablet by mouth in the morning. [facility] losartan-hy drochloroth iazide 100-12.5 mg per tablet 0 11-27 00:00: 00 Yes 1{tbl} Take 1 tablet by mouth in the morning. [facility] losartan-hy drochloroth iazide 100-12.5 mg per tablet 0 11-27 00:00: 00 Yes 1{tbl} Take 1 tablet by mouth in the morning. [facility] losartan-hy drochloroth iazide 100-12.5 mg per tablet 0 11-27 00:00: 00 Yes 1{tbl} Take 1 tablet by mouth in the morning. [facility] losartan-hy drochloroth iazide 100-12.5 mg per tablet 0 11-27 00:00: 00 Yes 1{tbl} Take 1 tablet by mouth in the morning. [facility] losartan-hy drochloroth iazide 100-12.5 mg per tablet 11-27 00:00: 00 Yes 1{tbl} Take 1 tablet by mouth in the morning. [facility] losartan-hy drochloroth iazide 100-12.5 mg per tablet 11-27 00:00: 00 Yes 1{tbl} Take 1 tablet by mouth in the morning. [facility] losartan-hy drochloroth iazide 100-12.5 mg per tablet 11-27 00:00: 00 Yes 1{tbl} Take 1 tablet by mouth in the morning. [facility] losartan-hy drochloroth iazide 100-12.5 mg per tablet 8 00:00: 00 Yes 1{tbl} Take 1 tablet by mouth in the morning. [facility] Immunizations Ordered Immunization Name Filled Immunization Name Date Status Comments Source Pneumococcal 20 Conjugate, PCV20 (Prevnar 20) Unknown Completed [facility] TDAP Unknown Completed [facility] Zoster Vaccine Recombinant Unknown Completed [facility] Pneumococcal 20 Conjugate, PCV20 (Prevnar 20) Unknown Completed [facility] TDAP Unknown Completed [facility] Zoster Vaccine Recombinant Unknown Completed [facility] Pneumococcal 20 Conjugate, PCV20 (Prevnar 20) Unknown Completed [facility] TDAP Unknown Completed [facility] Zoster Vaccine Recombinant Unknown Completed [facility] Pneumococcal 20 Conjugate, PCV20 (Prevnar 20) Unknown Completed [facility] TDAP Unknown Completed [facility] Zoster Vaccine Recombinant Unknown Completed [facility] Pneumococcal 20 Conjugate, PCV20 (Prevnar 20) Unknown Completed [facility] TDAP Unknown Completed [facility] Zoster Vaccine Recombinant Unknown Completed [facility] Pneumococcal 20 Conjugate, PCV20 (Prevnar 20) Unknown Completed [facility] TDAP Unknown Completed [facility] Zoster Vaccine Recombinant Unknown Completed [facility] Pneumococcal 20 Conjugate, PCV20 (Prevnar 20) Unknown Completed [facility] TDAP Unknown Completed [facility] Pneumococcal 20 Conjugate, PCV20 (Prevnar 20) Unknown Completed [facility] Zoster Vaccine Recombinant Unknown Completed [facility] TDAP Unknown Completed [facility] Pneumococcal 20 Conjugate, PCV20 (Prevnar 20) Unknown Completed [facility] TDAP Unknown Completed [facility] Zoster Vaccine Recombinant Unknown Completed [facility] Zoster Vaccine Recombinant Unknown Completed [facility] Pneumococcal 20 Conjugate, PCV20 (Prevnar 20) Unknown Completed [facility] TDAP Unknown Completed [facility] Zoster Vaccine Recombinant Unknown Completed [facility] Pneumococcal 20 Conjugate, PCV20 (Prevnar 20) Unknown Completed [facility] TDAP Unknown Completed [facility] Zoster Vaccine Recombinant Unknown Completed [facility] Pneumococcal 20 Conjugate, PCV20 (Prevnar 20) Unknown Completed [facility] TDAP Unknown Completed [facility] Zoster Vaccine Recombinant Unknown Completed [facility] Pneumococcal 20 Conjugate, PCV20 (Prevnar 20) Unknown Completed [facility] TDAP Unknown Completed [facility] Zoster Vaccine Recombinant Unknown Completed [facility] Pneumococcal 20 Conjugate, PCV20 (Prevnar 20) Unknown Completed [facility] TDAP Unknown Completed [facility] Zoster Vaccine Recombinant Unknown Completed [facility] Pneumococcal 20 Conjugate, PCV20 (Prevnar 20) Unknown Completed [facility] TDAP Unknown Completed [facility] Zoster Vaccine Recombinant Unknown Completed [facility] Pneumococcal 20 Conjugate, PCV20 (Prevnar 20) Unknown Completed [facility] TDAP Unknown Completed [facility] Zoster Vaccine Recombinant Unknown Completed [facility] Pneumococcal 20 Conjugate, PCV20 (Prevnar 20) Unknown Completed [facility] TDAP Unknown Completed [facility] Zoster Vaccine Recombinant Unknown Completed [facility] Pneumococcal 20 Conjugate, PCV20 (Prevnar 20) Unknown Completed [facility] TDAP Unknown Completed [facility] Zoster Vaccine Recombinant Unknown Completed [facility] Pneumococcal 20 Conjugate, PCV20 (Prevnar 20) Unknown Completed [facility] TDAP Unknown Completed [facility] Zoster Vaccine Recombinant Unknown Completed [facility] Vital Signs Vital Name Observation Time Observation Value Comments S ource Systolic blood pressure 2023-03-13 21:33:00 155 mm[Hg] [facility] Diastolic blood pressure 2023-03-13 21:33:00 87 mm[Hg] [facility] Heart rate 2023-03-13 21:29:00 82 [facility] 2023-03-13 21:29:[address] [facility] Respiratory rate 2023-03-13 21:29:00 18 /min [facility] Body height 2023-03-13 21:29:00 152.4 cm [facility] Body weight 2023-03-13 21:29:00 73.619 kg [facility] BMI 2023-03-13 21:29:00 31.70 kg/m2 [facility] Oxygen saturation in Arterial blood by Pulse oximetry 2023-03-13 21:29:00 98 /min [facility] Systolic blood pressure 2023-02-13 22:02:00 139 mm[Hg] [facility] Diastolic blood pressure 2023-02-13 22:02:00 78 mm[Hg] [facility] Heart rate 2023-02-13 22:01:00 62 /min [facility] temperature 2023-02-13 22:01:[address] [facility] Respiratory rate 2023-02-13 22:01:00 18 /min [facility] Body height 2023-02-13 22:01:00 152.4 cm [facility] Body weight 2023-02-13 22:01:00 75.342 kg [facility] BMI 2023-02-13 22:01:00 32.44 kg/m2 [facility] Oxygen saturation in Arterial blood by Pulse oximetry 2023-02-13 22:01:00 96 /min [facility] Procedures Procedure Date / Time Performed Performing Clinician Source ASSIGNMENT OF BENEFITS 2023-03-13 21:19:25 Docto r Unassigned, Rodney [facility] THYROID STIMULATING HORMONE 2023-02-13 22:58:[address] [facility] COMP. METABOLIC PANEL (04628) 2023-02-13 22:58:[address] [facility] LIPID PANEL (77910)(TOTAL CHOLESTEROL, TRIGLYCERIDES, HDL) 2023-02-13 22:58:[address] [facility] CBC WITH DIFF 2023-02-13 22:58:00 [facility] GLYCOSYLATED HEMOGLOBIN (A1C) 2023-02-13 22:58:[address] [facility] FREE T3 2023-02-13 22:58:00 [facility] 2023-02-13 22:58:00 Sirena Everett Un [facility] ASSIGNMENT OF BENEFITS 2023-02-13 22:47:58 Docto r Unassigned, Rodney [facility] Encounters Start Date/Time End Date/Time Encounter Type Admission Type Attending Clinicians Care Facility Care Department Encounter ID Source 2023-03-13 15:40:00 2023-03-13 15:58:15 Outpatient R OB-TAMARA ARCINIEGAMA INO [facility] [id number] [facility] 2023-03-13 15:40:00 2023-03-13 15:58:15 [facility] 1..840.114 350.1.13.10 4.2.7.2.686 [id number] [facility] 2023-03-13 00:00:00 2023-03-13 00:00:00 Orders Only Doctor Unassigned, Rodney [facility] 1.840.114 350.1.13.10 4.2.7.2.686 [id number] [facility] 2023-03-09 00:00:00 2023-03-09 00:00:00 Patient Secure Msg [facility] 1..840.114 350.1.13.10 4.2.7.2.686 [id number] [facility] 2023-02-22 00:00:00 2023-02-22 00:00:00 Refill Sirena Everett [facility] 1.2.840.114 350.1.13.10 4.2.7.2.686 [id number] [facility] 2023-02-19 00:00:00 2023-02-19 00:00:00 Telephone Sirena Everett [facility] 1.2.840.114 350.1.13.10 4.2.7.2.686 [id number] [facility] 2023-02-15 00:00:00 2023-02-15 00:00:00 Telephone Sirena Everett [facility] 1.2.840.114 350.1.13.10 4.2.7.2.686 [id number] [facility] 2023-02-14 00:00:00 2023-02-14 00:00:00 Telephone ChanorosaTania , Yazan [facility] 1.2.840.114 350.1.13.10 4.2.7.2.686 [id number] [facility] 2023-02-14 00:00:00 2023-02-14 00:00:00 Telephone Sirena Everett [facility] 1.2.840.114 350.1.13.10 4.2.7.2.686 [id number] [facility] 2023-02-14 00:00:00 2023-02-14 00:00:00 Telephone Sirena Everett [facility] 1.2.840.114 350.1.13.10 4.2.7.2.686 [id number] [facility] 2023-02-13 16:45:00 2023-02-13 17:00:00 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 Visit Pob, Adc Lab Main Sirena Everett [facility] 1.2.840.114 350.1.13.10 4.2.7.2.686 [id number] [facility] 2023-02-13 16:00:00 2023-02-13 16:32:27 Outpatient R SIRENA EVERETT [facility] [id number] [facility] 2023-02-13 16:00:00 2023-02-13 16:32:27 Office Visit Sirena Everett [facility] 1.2.840.114 350.1.13.10 4.2.7.2.686 [id number] [facility] 2023-02-13 00:00:00 2023-02-13 00:00:00 Orders Only Doctor Unassigned, Rodney [facility] 1.2.840.114 350.1.13.10 4.2.7.2.686 [id number] [facility] Results Test Description Test Time Test Comments Results Result Co mments Source [facility] [id number] 00:25:16 * Test Item Value Reference Range Interpretation Comme nts TSH (test code = 7522492099) 3.10 See_Comment [Automated messa ge] The system which generated this result transmitted reference range: 0.45 - 4.70 mIU/L. The reference range was not used to interpret this result as normal/abnormal. Lab Interpretation (test code = 04079-2) Normal [facility] [id number] 00:11:54* Test Item Value Reference Range Interpretation Comme nts FREE T4 (test code = 0237595518) 1.22 See_Comment [Automated messa ge] The system which generated this result transmitted reference range: 0.78 - 2.20 ng/dL:. The reference range was not used to interpret this result as normal/abnormal. Lab Interpretation (test code = 36207-0) Normal [facility] [id number] 00:11:54* Test Item Value Reference Range Interpretation Comme nts FREE T4 (test code = 8860446639) 1.22 See_Comment [Automated [employer] ge] The system which generated this result transmitted reference range: 0.78 - 2.20 ng/dL:. The reference range was not used to interpret this result as normal/abnormal. Lab Interpretation (test code = 25912-1) Normal [facility] [id number] 00:11:34* Test Item Value Reference Range Interpretation Comme nts FREE T3 (test code = 8253601746) 3.75 pg/mL 2.77-5.27 Lab Interpretation (test cod e = 92776-9) Normal [facility] [id number] 00:11:34* Test Item Value Reference Range Interpretation Comme nts FREE T3 (test code = 2042444718) 3.75 pg/mL 2.77-5.27 Lab Interpretation (test cod e = 95700-0) Normal [facility] (08531)(TOTAL CHOLESTEROL, TRIGLYCERIDES, HDL)2023-02-13 23:55:10* Test Item Value Reference Range Interpretation Comme nts CHOL (test code = 7918461043) 163 mg/dL 120-200 HDL (test code = 0244178936) 66 mg/dL >=50 HDLC RATIO (test code = 9133350190) 2.5 <=4.5 TRIG (test code = 7179794478) 139 mg/dL 30-170 LDL CHOL (test code = 45666-3) 69 mg/dL <=160 VLDL (test code = 6058385372) 28 mg/dL 5-60 Lab Interpretation (test cod e = 97575-7) Normal [facility] (59101)(TOTAL CHOLESTEROL, TRIGLYCERIDES, HDL)2023-02-13 23:55:10* Test Item Value Reference Range Interpretation Comme nts CHOL (test code = 1292357056) 163 mg/dL 120-200 HDL (test code = 7811134844) 66 mg/dL >=50 HDLC RATIO (test code = 6600883560) 2.5 <=4.5 TRIG (test code = 0990312385) 139 mg/dL 30-170 LDL CHOL (test code = 70638-3) 69 mg/dL <=160 VLDL (test code = 9449518253) 28 mg/dL 5-60 Lab Interpretation (test cod e = 62386-6) Normal [facility] METABOLIC PANEL (26077)2023-02-13 23:54:50* Test Item Value Reference Range Interpretation Comme nts NA (test code = 3969122804) 129 mmol/L 135-145 L K (test code = 0673133268) 4.3 mmol/L 3.5-5.0 CL (test code = 3290445541) 92 mmol/L 98-108 L CO2 TOTAL (test code = 8311018337) 29 mmol/L 23-31 AGAP (test code = 3370773752) 8 2-16 BUN (test code = 5881005044) 15 mg/dL 7-23 GLUCOSE (test code = 7328386041) 91 mg/dL 70-110 CREATININE (test code = 8109121843) 0.54 mg/dL 0.50-1.04 TOTAL BILI (test code = 9145194912) 0.3 mg/dL 0.1-1.1 CALCIUM (test code = 0083071401) 9.8 mg/dL 8.6-10.6 T PROTEIN (test code = 8055321925) 7.2 g/dL 6.3-8.2 ALBUMIN (test code = 4398336739) 4.3 g/dL 3.5-5.0 ALK PHOS (test code = 4928664091) 57 U/L 34-122 ALTv (test code = 1742-6) 12 U/L 5-35 AST(SGOT) (test code = 6975525424) 16 U/L 13-40 eGFR (test code = 92212-6) 97.4 mL/min/1.73m2 CKD-EPI eGFR (2020). Assuming creatinine has been stable day-to-day for at least three months, the eGFR indicates Category G1 (>= 90 mL/min/1.73 m2) Lab Interpretation (test code = 50527-5) Abnormal [facility] METABOLIC PANEL (88649)2023-02-13 23:54:50* Test Item Value Reference Range Interpretation Comme nts NA (test code = 0345971928) 129 mmol/L 135-145 L K (test code = 8356031337) 4.3 mmol/L 3.5-5.0 CL (test code = 6320489897) 92 mmol/L 98-108 L CO2 TOTAL (test code = 1318138939) 29 mmol/L 23-31 AGAP (test code = 5190806596) 8 2-16 BUN (test code = 4976364499) 15 mg/dL 7-23 GLUCOSE (test code = 4500759787) 91 mg/dL 70-110 CREATININE (test code = 9238126894) 0.54 mg/dL 0.50-1.04 TOTAL BILI (test code = 2527661923) 0.3 mg/dL 0.1-1.1 CALCIUM (test code = 6497531793) 9.8 mg/dL 8.6-10.6 T PROTEIN (test code = 4902488413) 7.2 g/dL 6.3-8.2 ALBUMIN (test code = 7860770637) 4.3 g/dL 3.5-5.0 ALK PHOS (test code = 2958008655) 57 U/L 34-122 ALTv (test code = 1742-6) 12 U/L 5-35 AST(SGOT) (test code = 7052901460) 16 U/L 13-40 eGFR (test code = 50961-7) 97.4 mL/min/1.73m2 CKD-EPI eGFR (2020). Assuming creatinine has been stable day-to-day for at least three months, the eGFR indicates Category G1 (>= 90 mL/min/1.73 m2) Lab Interpretation (test code = 68988-3) Abnormal [facility] (A1C)2023-02-13 23:15:57* Test Item Value Reference Range Interpretation Comme nts HGB A1C (test code = 4548-4) 8.3 % 4.0-5.7 H SALOMÓN (test code = SALOMÓN) Reference RangesNormal: <5.7%Prediabetes: 5.7 - 6.4%Diabetes: > 6.5% Lab Interpretation (test code = 39158-6) Abnormal [facility] (A1C)2023-02-13 23:15:57* Test Item Value Reference Range Interpretation Comme nts HGB A1C (test code = 4548-4) 8.3 % 4.0-5.7 H SALOMÓN (test code = SALOMÓN) Reference RangesNormal: <5.7%Prediabetes: 5.7 - 6.4%Diabetes: > 6.5% Lab Interpretation (test code = 07538-8) Abnormal [facility] WITH [id number] 23:13:04* Test Item Value Reference Range Interpretation Comme nts WBC (test code = 6690-2) 6.71 See_Comment [Automated [employer]] The system which generated this result transmitted reference range: 4.30 - 11.10 10*3/?L. The reference range was not used to interpret this result as normal/abnormal. RBC (test code = 789-8) 4.02 See_Comment [Automated [employer]] The system which generated this result transmitted reference range: 3.93 - 5.25 10*6/?L. The reference range was not used to interpret this result as normal/abnormal. HGB (test code = 718-7) 9.3 g/dL 11.6-15.0 L HCT (test code = 4544-3) 31.0 % 35.7-45.2 L MCV (test code = 787-2) 77.1 fL 80.6-95.5 L MCH (test code = 785-6) 23.1 pg 25.9-32.8 L MCHC (test code = 786-4) 30.0 g/dL 31.6-35.1 L RDW-SD (test code = 35289-0) 45.7 fL 39.0-49.9 RDW-CV (test code = 788-0) 16.4 % 12.0-15.5 H PLT (test code = 777-3) 310 See_Comment [Automated messa ge] The system which generated this result transmitted reference range: 166 - 358 10*3/?L. The reference range was not used to interpret this result as normal/abnormal. MPV (test code = 22507-0) 10.6 fL 9.5-12.9 NRBC/100 WBC (test code = 2510368251) 0.0 See_Comment [Automated me ssage] The system which generated this result transmitted reference range: 0.0 - 10.0 /100 WBCs. The reference range was not used to interpret this result as normal/abnormal. NRBC x10^3 (test code = 0604766064) See_Comment [Automated messa ge] The system which generated this result transmitted reference range: 10*3/?L. The reference range was not used to interpret this result as normal/abnormal. GRAN MAT (NEUT) % (test code = 770-8) 42.4 % IMM GRAN % (test code = 4914106618) 0.10 % LYMPH % (test code = 736-9) 35.9 % MONO % (test code = 5905-5) 6.4 % EOS % (test code = 713-8) 14.0 % BASO % (test code = 706-2) 1.2 % GRAN MAT x10^3(ANC) (test code = 8082971223) 2.84 10*3/uL 1.88-7.09 IMM GRAN x10^3 (test code = 5732220916) 0.00-0.06 LYMPH x10^3 (test code = 731-0) 2.41 10*3/uL 1.32-3.29 MONO x10^3 (test code = 742-7) 0.43 10*3/uL 0.33-0.92 EOS x10^3 (test code = 711-2) 0.94 10*3/uL 0.03-0.39 H BASO x10^3 (test code = 704-7) 0.08 10*3/uL 0.01-0.07 H Lab Interpretation (test code = 50638-0) Abnormal [facility] WITH [id number] 23:13:04* Test Item Value Reference Range Interpretation Comme nts WBC (test code = 6690-2) 6.71 See_Comment [Automated messa ge] The system which generated this result transmitted reference range: 4.30 - 11.10 10*3/?L. The reference range was not used to interpret this result as normal/abnormal. RBC (test code = 789-8) 4.02 See_Comment [Automated messa ge] The system which generated this result transmitted reference range: 3.93 - 5.25 10*6/?L. The reference range was not used to interpret this result as normal/abnormal. HGB (test code = 718-7) 9.3 g/dL 11.6-15.0 L HCT (test code = 4544-3) 31.0 % 35.7-45.2 L MCV (test code = 787-2) 77.1 fL 80.6-95.5 L MCH (test code = 785-6) 23.1 pg 25.9-32.8 L MCHC (test code = 786-4) 30.0 g/dL 31.6-35.1 L RDW-SD (test code = 35752-8) 45.7 fL 39.0-49.9 RDW-CV (test code = 788-0) 16.4 % 12.0-15.5 H PLT (test code = 777-3) 310 See_Comment [Automated messa ge] The system which generated this result transmitted reference range: 166 - 358 10*3/?L. The reference range was not used to interpret this result as normal/abnormal. MPV (test code = 12442-8) 10.6 fL 9.5-12.9 NRBC/100 WBC (test code = 8039213830) 0.0 See_Comment [Automated [employer] ssage] The system which generated this result transmitted reference range: 0.0 - 10.0 /100 WBCs. The reference range was not used to interpret this result as normal/abnormal. NRBC x10^3 (test code = 9562306884) See_Comment [Automated messa ge] The system which generated this result transmitted reference range: 10*3/?L. The reference range was not used to interpret this result as normal/abnormal. GRAN MAT (NEUT) % (test code = 770-8) 42.4 % IMM GRAN % (test code = 5639407547) 0.10 % LYMPH % (test code = 736-9) 35.9 % MONO % (test code = 5905-5) 6.4 % EOS % (test code = 713-8) 14.0 % BASO % (test code = 706-2) 1.2 % GRAN MAT x10^3(ANC) (test code = 3405876710) 2.84 10*3/uL 1.88-7.09 IMM GRAN x10^3 (test code = 1350762963) 0.00-0.06 LYMPH x10^3 (test code = 731-0) 2.41 10*3/uL 1.32-3.29 MONO x10^3 (test code = 742-7) 0.43 10*3/uL 0.33-0.92 EOS x10^3 (test code = 711-2) 0.94 10*3/uL 0.03-0.39 H BASO x10^3 (test code = 704-7) 0.08 10*3/uL 0.01-0.07 H Lab Interpretation (test code = 92444-5) Abnormal [facility]
--- NOTE | 2023-03-28 17:29 | RAD REPORT ---
EXAM DESCRIPTION: Shaniqua Single View03/28/2023 5:13 pm CLINICAL HISTORY: Chest pain COMPARISON: 2021 FINDINGS: The lungs appear clear of acute infiltrate. The heart is normal size IMPRESSION: No acute abnormalities displayed
[2023-03-28 18:00] LABS: Absolute Lymphocytes (CBC) 2.3 K/uL (0.7-4.9); Hematocrit 28.8 % (36.0-45.0); Lymphocytes % 34.8 % (15.3-44.8); MCV 71.5 fL (80-100); MPV 8.8 fL (7.6-11.3); Platelets 300 thou/uL (152-406); RBC Red Blood Cell Count 4.03 M/uL (3.86-4.86)
[2023-03-28 18:08] LABS: Magnesium 1.1 mg/dL (1.6-2.4); Potassium 3.4 mEq/L (3.5-5.1); Troponin High Sensitivity 10.6 pg/mL (<58.9)
--- NOTE | 2023-03-28 20:26 | ER ---
Nurse's Notes [facility] Name: Anne-Marie Luz Age: 72 yrs Sex: Female : 1950 Arrival Date: 03/28/2023 Time: 16:18 Bed 18 Private MD: Diagnosis: Essential (primary) hypertension;Hypomagnesemia Presentation: 03/28 16:35 Chief complaint: Patient's son or daughter states: HTN AT HOME. Coronavirus screen: At bp this time, the client does not indicate any symptoms associated with coronavirus-19. Ebola Screen: No symptoms or risks identified at this time. Initial Sepsis Screen: Does the patient meet any 2 criteria? No. Patient's initial sepsis screen is negative. Does the patient have a suspected source of infection? No. Patient's initial sepsis screen is negative. Risk Assessment: Do you want to hurt yourself or someone else? Patient reports no desire to harm self or others. Onset of symptoms was March 28, 2023 at 06:00. 16:35 Method Of Arrival: Ambulatory bp 16:35 Acuity: LUIS FELIPE 3 bp Triage Assessment: 16:35 General: Appears in no apparent distress. Behavior is calm, cooperative, appropriate bp for age. Pain: Denies pain. GI: Reports nausea. Historical: - Allergies: 16:35 No Known Allergies; bp - Home Meds: 16:35 aspirin 81 mg Oral capsule 1 cap daily [Active]; Pravachol Oral 40 mg daily [Active]; bp losartan-hydrochlorothiazide 100-12.5 mg oral tablet 1 tab daily [Active]; hydroxychloroquine 200 mg oral tablet 1 tab daily [Active]; meloxicam 15 mg oral tablet 1 tab daily [Active]; - PMHx: 16:35 Diabetes mellitus; Hypertensive disorder; Hypercholesterolemia; Osteoarthritis; bp - Immunization history:: Adult Immunizations up to date. - Social history:: Smoking status: Patient denies any tobacco usage or history of. Screenin:22 [facility] ED Fall Risk Assessment (Adult) History of falling in the last 3 months, me1 including since admission No falls in past 3 months (0 pts) Confusion or Disorientation No (0 pts) Intoxicated or Sedated No (0 pts) Impaired Gait Yes (1 pt) Mobility Assist Device Used Yes (1 pt) Altered Elimination No (0 pt) Score/Fall Risk Level 0 - 2 = Low Risk Maintained a safe environment, Provided non-skid footwear, Hourly rounding (assess needs \T\ fall precautionary measures) done. Abuse screen: Denies threats or abuse. Nutritional screening: No deficits noted. Tuberculosis screening: No symptoms or risk factors identified. Assessment: 16:55 Reassessment: No changes from previously documented assessment. Patient and/or family ll1 updated on plan of care and expected duration. Pain level reassessed. 18:21 Reassessment: No changes from previously documented assessment. Patient and/or family me1 updated on plan of care and expected duration. Pain level reassessed. GI: Reports nausea, vomiting, since earlier today. 21:16 GI: Abdomen is flat. me1 Vital Signs: 16:35 BP 198 / 101; Pulse 75; Resp 16; Temp 98; Pulse Ox 97% ; bp 17:44 BP 186 / 86; Pulse 65; Resp 18; Pulse Ox 100% on R/A; me1 18:00 BP 172 / 85; Pulse 65; Resp 16; Pulse Ox 98% on R/A; me1 18:30 BP 109 / 64; Pulse 64; Resp 17; Pulse Ox 96% on R/A; me1 19:00 BP 102 / 68; Pulse 61; Resp 16; Pulse Ox 96% on R/A; me1 19:30 BP 124 / 67; Pulse 58; Resp 16; Pulse Ox 99% on R/A; me1 20:12 BP 145 / 88; Pulse 61; Resp 17; Pulse Ox 95% on R/A; me1 21:08 BP 141 / 91; Pulse 64; Resp 18; Pulse Ox 98% on R/A; me1 ED Course: 16:23 Patient arrived in ED. mr 16:32 Radha Steele FNP-C is PHCP. kb 16:32 Guillaume Pavon DO is Attending Physician. kb 16:35 Triage completed. bp 16:38 Arm band placed on. bp 16:55 Patient placed in an exam room, on a stretcher. ll1 17:15 XRAY Chest (1 view) In Process Unspecified. EDMS 17:23 Charley Oneal, LESLIE is Primary Nurse. me1 17:35 Inserted saline lock: 22 gauge in left antecubital area, using aseptic technique. me1 17:36 Basic Metabolic Panel Sent. me1 17:36 CBC with Diff Sent. me1 17:36 Magnesium Sent. me1 17:36 NT PRO-BNP Sent. me1 17:36 Troponin HS Sent. me1 18:21 EKG done, by ED staff, reviewed by Radha MIJARES. em1 18:22 Patient has correct armband on for positive identification. Bed in low position. Call me1 light in reach. Side rails up X2. Provided Education on: POC. Verbalized understanding. . 18:22 No provider procedures requiring assistance completed. me1 21:17 IV discontinued, intact, bleeding controlled, No redness/swelling at site. Pressure me1 dressing applied. Administered Medications: 17:44 Drug: cloNIDine PO 0.1 mg PO once Route: PO; me1 19:55 Follow up: Response: No adverse reaction; Marked relief of symptoms me1 20:11 Drug: Magnesium Sulfate IVPB 1 grams IVPB once over 1 hrs Route: IVPB; Infused Over: 1 me1 hrs; Site: left antecubital; 21:08 Follow up: IV Status: Completed infusion me1 20:11 Drug: NS 0.9% IV 500 ml IV at bolus once Route: IV; Rate: bolus; Site: left antecubital;me1 21:08 Follow up: IV Status: Completed infusion me1 Medication: 21:17 VIS not applicable for this client. me1 Outcome: 20:26 Discharge ordered by . betsy 21:16 Discharged to home ambulatory, with family, me1 21:16 Condition: stable 21:16 Discharge instructions given to patient, family, Instructed on discharge instructions, follow up and referral plans. Demonstrated understanding of instructions, follow-up care, 21:17 Patient left the ED. me1 Signatures: Dispatcher [employer] ED[facility] Radha Steele, DYLLAN BERNARDP-Carltonb Sameer, Ladonna, Reg Reg mr Arita Андрей em1 Yoandy Farris, RN Leonie Gore RN RN 1 Charley Oneal RN RN me1
--- NOTE | 2023-03-28 20:26 | EDPHYS ---
Physician Documentation [facility] Name: Anne-Marie Luz Age: 72 yrs Sex: Female : 1950 Arrival Date: 03/28/2023 Time: 16:18 Bed 18 Private MD: ED Physician Guillaume Pavon HPI: 03/28 21:40 This 72 yrs old Female presents to ER via Ambulatory with complaints of High kb Blood Pressure, Vomiting. 21:40 Patient is a 72-year-old female who presents for high blood pressure and headache that kb started this morning. States she did have some chest pain and slight shortness of breath last night but it resolved after short time. States she has not had any shortness of breath or chest pain today. Denies dizziness. Historical: - Allergies: 16:35 No Known Allergies; bp - Home Meds: 16:35 aspirin 81 mg Oral capsule 1 cap daily [Active]; Pravachol Oral 40 mg daily [Active]; bp losartan-hydrochlorothiazide 100-12.5 mg oral tablet 1 tab daily [Active]; hydroxychloroquine 200 mg oral tablet 1 tab daily [Active]; meloxicam 15 mg oral tablet 1 tab daily [Active]; - PMHx: 16:35 Diabetes mellitus; Hypertensive disorder; Hypercholesterolemia; Osteoarthritis; bp - Immunization history:: Adult Immunizations up to date. - Social history:: Smoking status: Patient denies any tobacco usage or history of. ROS: 21:40 Constitutional: Negative for fever, chills, and weight loss, kb 21:40 Neuro: Positive for headache, 21:40 All other systems are negative, Exam: 21:40 Constitutional: This is a well developed, well nourished patient who is awake, alert, kb and in no acute distress. Head/Face: Normocephalic, atraumatic. Eyes: Pupils equal round and reactive to light, extra-ocular motions intact. Lids and lashes normal. Conjunctiva and sclera are non-icteric and not injected. Cornea within normal limits. Periorbital areas with no swelling, redness, or edema. ENT: Moist Mucous membranes Cardiovascular: Regular rate Respiratory: Respirations even and unlabored. No increased work of breathing. Talking in full sentences Skin: Warm, dry with normal turgor. Normal color. MS/ Extremity: Pulses equal, no cyanosis. Neurovascular intact. Full, normal range of motion. Neuro: Awake and alert, GCS 15, oriented to person, place, time, and situation. Moves all extremities. Normal gait. 21:54 ECG was reviewed by the Attending Physician. kb Vital Signs: 16:35 BP 198 / 101; Pulse 75; Resp 16; Temp 98; Pulse Ox 97% ; bp 17:44 BP 186 / 86; Pulse 65; Resp 18; Pulse Ox 100% on R/A; me1 18:00 BP 172 / 85; Pulse 65; Resp 16; Pulse Ox 98% on R/A; me1 18:30 BP 109 / 64; Pulse 64; Resp 17; Pulse Ox 96% on R/A; me1 19:00 BP 102 / 68; Pulse 61; Resp 16; Pulse Ox 96% on R/A; me1 19:30 BP 124 / 67; Pulse 58; Resp 16; Pulse Ox 99% on R/A; me1 20:12 BP 145 / 88; Pulse 61; Resp 17; Pulse Ox 95% on R/A; me1 21:08 BP 141 / 91; Pulse 64; Resp 18; Pulse Ox 98% on R/A; me1 MDM: 16:32 Patient medically screened. kb 21:40 Differential diagnosis: hypertensive crisis, Malignant HTN. Data reviewed: vital signs, kb nurses notes. Historians other than the Patient: Daughter/Son: son and daughter. Counseling: I had a detailed discussion with the patient and/or guardian regarding the historical points, exam findings, and any diagnostic results supporting the discharge/admit diagnosis, lab results, radiology results, the need for outpatient follow up, a family practitioner, to return to the emergency department if symptoms worsen or persist or if there are any questions or concerns that arise at home. Response to treatment: the patient's symptoms have resolved after treatment, the patient's pain is gone. 03/28 16:39 Order name: Basic Metabolic Panel; Complete Time: 18:11 kb 03/28 16:39 Order name: CBC with Diff; Complete Time: 18:08 kb 03/28 16:39 Order name: Magnesium; Complete Time: 18:11 kb 03/28 16:39 Order name: NT PRO-BNP; Complete Time: 18:11 kb 03/28 16:39 Order name: Troponin HS; Complete Time: 18:11 kb 03/28 16:39 Order name: XRAY Chest (1 view); Complete Time: 17:41 kb 03/28 16:39 Order name: EKG; Complete Time: 16:41 kb 03/28 16:39 Order name: Cardiac monitoring; Complete Time: 20:01 kb 03/28 16:39 Order name: EKG - Nurse/Tech; Complete Time: 18:53 kb 03/28 16:39 Order name: IV Saline Lock; Complete Time: 17:36 kb 03/28 16:39 Order name: Labs collected and sent; Complete Time: 17:36 kb 03/28 16:39 Order name: O2 Per Protocol; Complete Time: 17:36 kb 03/28 16:39 Order name: O2 Sat Monitoring; Complete Time: 17:36 kb 03/28 18:11 Order name: Vital Signs; Complete Time: 20:12 kb EC:54 Rate is 64 beats/min. Rhythm is regular. QRS [place] is Normal. CT interval is normal at kb 172 msec. QRS interval is normal at 82 msec. QT interval is normal at 400 msec. Administered Medications: 17:44 Drug: cloNIDine PO 0.1 mg PO once Route: PO; me1 19:55 Follow up: Response: No adverse reaction; Marked relief of symptoms me1 20:11 Drug: Magnesium Sulfate IVPB 1 grams IVPB once over 1 hrs Route: IVPB; Infused Over: 1 me1 hrs; Site: left antecubital; 21:08 Follow up: IV Status: Completed infusion me1 20:11 Drug: NS 0.9% IV 500 ml IV at bolus once Route: IV; Rate: bolus; Site: left antecubital;me1 21:08 Follow up: IV Status: Completed infusion me1 Disposition: 20:24 I was immediately available on-site in the Emergency Department for consultation in the ms3 care of the patient. Disposition Summary: 03/28/23 20:26 Discharge Ordered Notes: Location: Home kb Condition: Stable kb Diagnosis - Essential (primary) hypertension kb - Hypomagnesemia kb Followup: kb - With: Emergency Department - When: As needed - Reason: Worsening of condition Followup: kb - With: Private Physician - When: 2 - 3 days - Reason: Recheck today's complaints, Continuance of care, Re-evaluation by your physician Discharge Instructions: - Discharge Summary Sheet kb - Hypertension, Adult, [id number] kb Forms: - Medication Reconciliation Form kb - Thank You Letter kb - Antibiotic Education kb - Prescription Opioid Use kb - Patient Portal Instructions kb - Leadership Thank You Letter kb Signatures: Dispatcher [employer] Radha Loera, REMEDY DEVELOPER-C AGNIESZKA-Yoandy Meneses, RN RN bp Guillaume Pavon, DO DO ms3 Charley Oneal RN RN me1
[2023-03-28 23:16] VITALS: TEMP 98
[2023-03-28 23:25] VITALS: BP 141/91; O2SAT 98
--- NOTE | 2023-03-30 15:12 | EKG ---
Test Date: 2023-03-28 Test Time: 18:17:12 [place] Operator: LILLIAN MEASUREMENT RESULTS: Intervals: Rate: 64 RI: 172 QRSD: 82 QT: 388 QTc: 400 [place]: P: 62 RI: 172 QRS: -28 T: 36 INTERPRETIVE STATEMENTS: Normal sinus rhythm Nonspecific T wave abnormality Abnormal ECG No previous ECG available for comparison Electronically Signed On 03-30-23 15:09:07 PEDIATRIC OPHTHALMOLOGIST by Jassi Pierre
== END ==
LOC: ER 16:18
DX: E83.42 Hypomagnesemia (principal); I11.0 Hypertensive heart disease with heart failure; E11.9 Type 2 diabetes mellitus without complications; Z79.82 Long term (current) use of aspirin
CPT/HCPCS: 85025; 80048; 36415; 83735; 84484; 83880; 71045; J3475; J7040; 93005; 96365; 99284

== ENCOUNTER → 2023-04-28 | Emergency (ER) | payer OTHER ==
[~2023-04-28] MED LIST changes: +KCL 20 MEQ/100 mL IVPB 100 ML IV ONE; +NA CHLORIDE 0.9% 1,000 ML ONE; -NA CHLORIDE 0.9% 500 ML ONE; +POTASSIUM 25 MEQ EFFERV TAB ONE; -cloNIDine HCL 0.1 MG TAB ONE
--- OUTSIDE RECORDS SUMMARY | 2023-04-28 13:04 | XMS REPORT | Continuity of Care Document ---
Author Name Unknown Address [address] [facility] [facility] [address] [place] [address] [facility] Address [address] [place] [address] Care Team Providers Care Talent Scout Name Role Phone DALY MCKINNON Primary Care Physician DALY Larson Attending Clinician DALY Mackey Attending Clinician Unavailab lal UNKNOWN, ATTENDING Attending Clinician UnavailMAGDALENE Dutton Attending Clinician Unavailable Magdalene Zazueta PA-C Attending Clinician [phone] Unknown, Attending Attending Clinician Shoshana Meneses NP Attending Clinician Doctor Unassigned, [place] Attending Clinician U rickaildarrius Pob, [facility] Attending Clinician SHOSHANA Perales Attending Clinician Gila lal Payers Payer Name Policy Type Policy Number Effective Date Expirati on Date Source MEDICARE PART A \\T\\ [id number] 2014 00:00:00 [place] [id number] 2023 00:00:00 Problems Condition Name Condition Details Condition Category Status Onset Date Resolution Date Last Treatment Date Treating Clinician Comments Source Type 2 diabetes mellitus without complicati on, with long-term current use of insulin Type 2 diabetes mellitus without complicati on, with long-term current use of insulin Disease Active 2022-04 00:00: 00 [facility] Rheumatoid arthritis involving multiple sites, unspecifie d whether rheumatoid factor present Rheumatoid arthritis involving multiple sites, unspecifie d whether rheumatoid factor present Disease Active 2022-04 00:00: 00 [facility] Allergies, Adverse Reactions, Alerts Allergy Name Allergy Type Status Severity Reaction(s) Onset Date Inactive Date Treating Clinician Comments Source NO KNOWN ALLERGIE S Drug Class Active [facility] Social History Social Habit Start Date Stop Date Quantity Comments [facility] 2023-04-26 00:00:00 2023-04-26 00:00:00 Ex-drinker (finding) [facility] [place] [place] History of Social function 2023-04-26 00:00:00 2023-04-26 00:00:[address] [facility] [place] [place] Tobacco use and exposure 2023-03-13 00:00:00 2023-03-13 00:00:00 Smokeless tobacco non-user [facility] [place] [place] Sex Assigned At 1950 00:00:00 1950 00:00:[address] [facility] [place] [place] Smoking Status Start Date Stop Date Source Tobacco smoking consumption unknown [facility] [place] [place] Never smoked tobacco [facility] Medications Ordered Medication Name Filled Medication Name Start Date Stop Date Current Medication? Ordering Clinician Indication Dosage Frequency Signature (SIG) Comments Components Source dexamethaso ne sod phos PF injection 10 mg 04-27 00:45: 00 04-26 23:55 :00 No [id number] 10mg [facility] ipratropium -albuteroL (DUONEB) 0.5 mg-3 mg(2.5 mg base)/3 mL nebulizer solution 3 mL 04-27 00:45: 00 04-26 23:56 :00 No [id number] 3mL [facility] ipratropium -albuteroL (DUONEB) 0.5 mg-3 mg(2.5 mg base)/3 mL nebulizer solution 3 mL 04-27 00:45: 00 04-26 23:56 :00 No [id number] 3mL 3 mL, Inhalation , ONCE, 1 dose, On Sun04/26/23 at 1845, Routine [facility] dexamethaso ne sod phos PF injection 10 mg 04-27 00:45: 00 04-26 23:55 :00 No [id number] 10mg 10 mg, Intramuscu lar, ONCE, 1 dose, On Taryn 04/26/23 at 1845, 1 mL [facility] albuterol 2.5 mg /3 mL (0.083 %) nebulizer solution 04-26 00:00: 00 Yes [id number] 2.5mg Inhale 3 mL every 4 (four) hours as needed for Wheezing, Shortness of Breath or Chest tightness. [facility] albuterol 90 mcg/actuati on inhaler 04-26 00:00: 00 Yes [id number] 2{puff} Inhale 2 Puffs every 6 (six) hours as needed for Shortness of Breath or Wheezing. [facility] benzonatate (TESSALON PERLES) 100 mg capsule 04-26 00:00: 00 Yes [id number] 100mg Take 1 capsule by mouth every 8 (eight) hours as needed for Cough. [facility] predniSONE 10 mg tablet 04-26 00:00: 00 05-02 05:59 :00 Yes [id number] 10mg Take 1 tablet by mouth in the morning and 1 tablet in the evening. Do all this for 5 days. [facility] traMADoL 50 mg tablet 2022-04 00:00: 00 Yes [id number] 50mg Take 1 tablet by mouth 2 (two) times daily with meals as needed for Pain (scale 7-10). Indication s: chronic pain, RA/OA [facility] traMADoL 50 mg tablet 2022-04 00:00: 00 Yes [id number] 50mg Take 1 tablet by mouth 2 (two) times daily with meals as needed for Pain (scale 7-10). Indication s: chronic pain, RA/OA [facility] benzonatate (TESSALON PERLES) 100 mg capsule 2022-04 00:00: 00 Yes [id number] 100mg Take 1 capsule by mouth every 8 (eight) hours as needed for Cough. [facility] pregabalin 25 mg capsule 2022-04 00:00: 00 Yes [id number] 25mg Take 1 capsule by mouth in the morning and 1 capsule at noon and 1 capsule in the evening. [facility] albuterol 90 mcg/actuati on inhaler 2022-04 00:00: 00 Yes [id number] 2{puff} Inhale 2 Puffs every 4 (four) hours as needed for Wheezing, Shortness of Breath or Bronchospa sm. [facility] guaiFENesin (MUCINEX FAST-MAX CHEST-CONGE ST) 100 mg/5 mL solution 2022-04 00:00: 00 Yes [id number] 200mg Take 10 mL by mouth every 4 (four) hours as needed for Cough. [facility] benzonatate (TESSALON PERLES) 100 mg capsule 2022-04 00:00: 00 Yes [id number] 100mg Take 1 capsule by mouth every 8 (eight) hours as needed for Cough. [facility] pregabalin 25 mg capsule 2022-04 00:00: 00 Yes [id number] 25mg Take 1 capsule by mouth in the morning and 1 capsule at noon and 1 capsule in the evening. [facility] albuterol 90 mcg/actuati on inhaler 2022-04 00:00: 00 Yes [id number] 2{puff} Inhale 2 Puffs every 4 (four) hours as needed for Wheezing, Shortness of Breath or Bronchospa sm. [facility] guaiFENesin (MUCINEX FAST-MAX CHEST-CONGE ST) 100 mg/5 mL solution 2022-04 00:00: 00 Yes [id number] 200mg Take 10 mL by mouth every 4 (four) hours as needed for Cough. [facility] benzonatate (TESSALON PERLES) 100 mg capsule 2022-04 00:00: 00 Yes [id number] 100mg Take 1 capsule by mouth every 8 (eight) hours as needed for Cough. [facility] pregabalin 25 mg capsule 2022-04 00:00: 00 Yes [id number] 25mg Take 1 capsule by mouth in the morning and 1 capsule at noon and 1 capsule in the evening. [facility] albuterol 90 mcg/actuati on inhaler 2022-04 00:00: 00 Yes [id number] 2{puff} Inhale 2 Puffs every 4 (four) hours as needed for Wheezing, Shortness of Breath or Bronchospa sm. [facility] guaiFENesin (MUCINEX FAST-MAX CHEST-CONGE ST) 100 mg/5 mL solution 2022-04 00:00: 00 Yes [id number] 200mg Take 10 mL by mouth every 4 (four) hours as needed for Cough. [facility] benzonatate (TESSALON PERLES) 100 mg capsule 2022-04 00:00: 00 Yes [id number] 100mg Take 1 capsule by mouth every 8 (eight) hours as needed for Cough. [facility] pregabalin 25 mg capsule 2022-04 00:00: 00 Yes [id number] 25mg Take 1 capsule by mouth in the morning and 1 capsule at noon and 1 capsule in the evening. [facility] albuterol 90 mcg/actuati on inhaler 2022-04 00:00: 00 Yes [id number] 2{puff} Inhale 2 Puffs every 4 (four) hours as needed for Wheezing, Shortness of Breath or Bronchospa sm. [facility] guaiFENesin (MUCINEX FAST-MAX CHEST-CONGE ST) 100 mg/5 mL solution 2022-04 00:00: 00 Yes [id number] 200mg Take 10 mL by mouth every 4 (four) hours as needed for Cough. [facility] traMADoL 50 mg tablet 2022-04 00:00: 00 Yes [id number] 50mg Take 1 tablet by mouth 2 (two) times daily with meals as needed for Pain (scale 7-10). Indication s: chronic pain, RA/OA [facility] traMADoL 50 mg tablet 2022-04 00:00: 00 Yes [id number] 50mg Take 1 tablet by mouth 2 (two) times daily with meals as needed for Pain (scale 7-10). Indication s: chronic pain, RA/OA [facility] traMADoL 50 mg tablet 2022-04 00:00: 00 Yes [id number] 50mg Take 1 tablet by mouth 2 (two) times daily with meals as needed for Pain (scale 7-10). Indication s: chronic pain, RA/OA [facility] traMADoL 50 mg tablet 2022-04 00:00: 00 Yes [id number] 50mg Take 1 tablet by mouth 2 (two) times daily with meals as needed for Pain (scale 7-10). Indication s: chronic pain, RA/OA [facility] traMADoL 50 mg tablet 2022-04 00:00: 00 Yes [id number] 50mg Take 1 tablet by mouth 2 (two) times daily with meals as needed for Pain (scale 7-10). Indication s: chronic pain, RA/OA [facility] traMADoL 50 mg tablet 2022-04 00:00: 00 04-06 00:00 :00 No [id number] 50mg Take 1 tablet by mouth 2 (two) times daily with meals as needed for Pain (scale 7-10). Indication s: chronic pain, RA/OA [facility] hydroxychlo roquine 200 mg tablet 2022-04 00:00: 00 Yes [id number] 200mg Take 1 tablet by mouth in the morning. [facility] traMADoL 50 mg tablet 2022-04 00:00: 00 Yes [id number] 50mg Take 1 tablet by mouth 2 (two) times daily with meals as needed for Pain (scale 7-10). Indication s: chronic pain, RA [facility] meloxicam 15 mg tablet 2022-04 00:00: 00 Yes [id number] 15mg Take 1 tablet by mouth once daily as needed for Pain or Inflammati on. [facility] Diclofenac Sodium (VOLTAREN) 1 % gel 2022-04 00:00: 00 Yes [id number] Take 2-4 grams three times a day as needed for pain [facility] hydroxychlo roquine 200 mg tablet 2022-04 00:00: 00 Yes [id number] 200mg Take 1 tablet by mouth in the morning. [facility] traMADoL 50 mg tablet 2022-04 00:00: 00 Yes [id number] 50mg Take 1 tablet by mouth 2 (two) times daily with meals as needed for Pain (scale 7-10). Indication s: chronic pain, RA [facility] meloxicam 15 mg tablet 2022-04 00:00: 00 Yes [id number] 15mg Take 1 tablet by mouth once daily as needed for Pain or Inflammati on. [facility] Diclofenac Sodium (VOLTAREN) 1 % gel 2022-04 00:00: 00 Yes [id number] Take 2-4 grams three times a day as needed for pain [facility] hydroxychlo roquine 200 mg tablet 2022-04 00:00: 00 Yes [id number] 200mg Take 1 tablet by mouth in the morning. [facility] traMADoL 50 mg tablet 2022-04 00:00: 00 Yes [id number] 50mg Take 1 tablet by mouth 2 (two) times daily with meals as needed for Pain (scale 7-10). Indication s: chronic pain, RA [facility] meloxicam 15 mg tablet 2022-04 00:00: 00 Yes [id number] 15mg Take 1 tablet by mouth once daily as needed for Pain or Inflammati on. [facility] Diclofenac Sodium (VOLTAREN) 1 % gel 2022-04 00:00: 00 Yes [id number] Take 2-4 grams three times a day as needed for pain [facility] hydroxychlo roquine 200 mg tablet 2022-04 00:00: 00 Yes [id number] 200mg Take 1 tablet by mouth in the morning. [facility] traMADoL 50 mg tablet 2022-04 00:00: 00 Yes [id number] 50mg Take 1 tablet by mouth 2 (two) times daily with meals as needed for Pain (scale 7-10). Indication s: chronic pain, RA [facility] meloxicam 15 mg tablet 2022-04 00:00: 00 Yes [id number] 15mg Take 1 tablet by mouth once daily as needed for Pain or Inflammati on. [facility] Diclofenac Sodium (VOLTAREN) 1 % gel 2022-04 00:00: 00 Yes [id number] Take 2-4 grams three times a day as needed for pain [facility] hydroxychlo roquine 200 mg tablet 2022-04 00:00: 00 Yes [id number] 200mg Take 1 tablet by mouth in the morning. [facility] tra[facility] mg tablet 2022-04 00:00: 00 Yes [id number] 50mg Take 1 tablet by mouth 2 (two) times daily with meals as needed for Pain (scale 7-10). Indication s: chronic pain, RA [facility] meloxicam 15 mg tablet 2022-04 00:00: 00 Yes [id number] 15mg Take 1 tablet by mouth once daily as needed for Pain or Inflammati on. [facility] Diclofenac Sodium (VOLTAREN) 1 % gel 2022-04 00:00: 00 Yes [id number] Take 2-4 grams three times a day as needed for pain [facility] hydroxychlo roquine 200 mg tablet 2022-04 00:00: 00 Yes [id number] 200mg Take 1 tablet by mouth in the morning. [facility] tra[facility] mg tablet 2022-04 00:00: 00 Yes [id number] 50mg Take 1 tablet by mouth 2 (two) times daily with meals as needed for Pain (scale 7-10). Indication s: chronic pain, RA [facility] meloxicam 15 mg tablet 2022-04 00:00: 00 Yes [id number] 15mg Take 1 tablet by mouth once daily as needed for Pain or Inflammati on. [facility] Diclofenac Sodium (VOLTAREN) 1 % gel 2022-04 00:00: 00 Yes [id number] Take 2-4 grams three times a day as needed for pain [facility] hydroxychlo roquine 200 mg tablet 2022-04 00:00: 00 Yes [id number] 200mg Take 1 tablet by mouth in the morning. [facility] tra[facility] mg tablet 2022-04 00:00: 00 Yes [id number] 50mg Take 1 tablet by mouth 2 (two) times daily with meals as needed for Pain (scale 7-10). Indication s: chronic pain, RA [facility] mg tablet 2022-04 00:00: 00 Yes [id number] 15mg Take 1 tablet by mouth once daily as needed for Pain or Inflammati on. [facility] hydroxychlo roquine 200 mg tablet 2022-04 00:00: 00 Yes [id number] 200mg Take 1 tablet by mouth in the morning. [facility] traMADoL 50 mg tablet 2022-04 00:00: 00 Yes [id number] 50mg Take 1 tablet by mouth 2 (two) times daily with meals as needed for Pain (scale 7-10). Indication s: chronic pain, RA [facility] meloxicam 15 mg tablet 2022-04 00:00: 00 Yes [id number] 15mg Take 1 tablet by mouth once daily as needed for Pain or Inflammati on. [facility] Diclofenac Sodium (VOLTAREN) 1 % gel 2022-04 00:00: 00 Yes [id number] Take 2-4 grams three times a day as needed for pain [facility] hydroxychlo roquine 200 mg tablet 2022-04 00:00: 00 Yes [id number] 200mg Take 1 tablet by mouth in the morning. [facility] traMADoL 50 mg tablet 2022-04 00:00: 00 Yes [id number] 50mg Take 1 tablet by mouth 2 (two) times daily with meals as needed for Pain (scale 7-10). Indication s: chronic pain, RA [facility] meloxicam 15 mg tablet 2022-04 00:00: 00 Yes [id number] 15mg Take 1 tablet by mouth once daily as needed for Pain or Inflammati on. [facility] Diclofenac Sodium (VOLTAREN) 1 % gel 2022-04 00:00: 00 Yes [id number] Take 2-4 grams three times a day as needed for pain [facility] hydroxychlo roquine 200 mg tablet 2022-04 00:00: 00 Yes [id number] 200mg Take 1 tablet by mouth in the morning. [facility] traMADoL 50 mg tablet 2022-04 00:00: 00 Yes [id number] 50mg Take 1 tablet by mouth 2 (two) times daily with meals as needed for Pain (scale 7-10). Indication s: chronic pain, RA [facility] meloxicam 15 mg tablet 2022-04 00:00: 00 Yes [id number] 15mg Take 1 tablet by mouth once daily as needed for Pain or Inflammati on. [facility] Diclofenac Sodium (VOLTAREN) 1 % gel 2022-04 00:00: 00 Yes [id number] Take 2-4 grams three times a day as needed for pain [facility] hydroxychlo roquine 200 mg tablet 2022-04 00:00: 00 Yes [id number] 200mg Take 1 tablet by mouth in the morning. [facility] traMADoL 50 mg tablet 2022-04 00:00: 00 Yes [id number] 50mg Take 1 tablet by mouth 2 (two) times daily with meals as needed for Pain (scale 7-10). Indication s: chronic pain, RA [facility] meloxicam 15 mg tablet 2022-04 00:00: 00 Yes [id number] 15mg Take 1 tablet by mouth once daily as needed for Pain or Inflammati on. [facility] Diclofenac Sodium (VOLTAREN) 1 % gel 2022-04 00:00: 00 Yes [id number] Take 2-4 grams three times a day as needed for pain [facility] hydroxychlo roquine 200 mg tablet 2022-04 00:00: 00 Yes [id number] 200mg Take 1 tablet by mouth in the morning. [facility] meloxicam 15 mg tablet 2022-04 00:00: 00 Yes [id number] 15mg Take 1 tablet by mouth once daily as needed for Pain or Inflammati on. [facility] Diclofenac Sodium (VOLTAREN) 1 % gel 2022-04 00:00: 00 Yes [id number] Take 2-4 grams three times a day as needed for pain [facility] hydroxychlo roquine 200 mg tablet 2022-04 00:00: 00 Yes [id number] 200mg Take 1 tablet by mouth in the morning. [facility] meloxicam 15 mg tablet 2022-04 00:00: 00 Yes [id number] 15mg Take 1 tablet by mouth once daily as needed for Pain or Inflammati on. [facility] Diclofenac Sodium (VOLTAREN) 1 % gel 2022-04 00:00: 00 Yes [id number] Take 2-4 grams three times a day as needed for pain [facility] hydroxychlo roquine 200 mg tablet 2022-04 00:00: 00 Yes [id number] 200mg Take 1 tablet by mouth in the morning. [facility] mel[facility]am [facility] mg tablet 2022-04 00:00: 00 Yes [id number] 15mg Take 1 tablet by mouth once daily as needed for Pain or Inflammati on. [facility] Diclofenac Sodium (VOLTAREN) 1 % gel 2022-04 00:00: 00 Yes [id number] Take 2-4 grams three times a day as needed for pain [facility] hydroxychlo roquine 200 mg tablet 2022-04 00:00: 00 Yes [id number] 200mg Take 1 tablet by mouth in the morning. [facility] mg tablet 2022-04 00:00: 00 Yes [id number] 15mg Take 1 tablet by mouth once daily as needed for Pain or Inflammati on. [facility] Diclofenac Sodium (VOLTAREN) 1 % gel 2022-04 00:00: 00 Yes [id number] Take 2-4 grams three times a day as needed for pain [facility] hydroxychlo roquine 200 mg tablet 2022-04 00:00: 00 Yes [id number] 200mg Take 1 tablet by mouth in the morning. [facility] meloxicam 15 mg tablet 2022-04 00:00: 00 Yes [id number] 15mg Take 1 tablet by mouth once daily as needed for Pain or Inflammati on. [facility] Diclofenac Sodium (VOLTAREN) 1 % gel 2022-04 00:00: 00 Yes [id number] Take 2-4 grams three times a day as needed for pain [facility] hydroxychlo roquine 200 mg tablet 2022-04 00:00: 00 Yes [id number] 200mg Take 1 tablet by mouth in the morning. [facility] mel[facility]am 15 mg tablet 2022-04 00:00: 00 Yes [id number] 15mg Take 1 tablet by mouth once daily as needed for Pain or Inflammati on. [facility] Diclofenac Sodium (VOLTAREN) 1 % gel 2022-04 00:00: 00 Yes [id number] Take 2-4 grams three times a day as needed for pain [facility] hydroxychlo roquine 200 mg tablet 2022-04 00:00: 00 Yes [id number] 200mg Take 1 tablet by mouth in the morning. [facility] mg tablet 2022-04 00:00: 00 Yes [id number] 15mg Take 1 tablet by mouth once daily as needed for Pain or Inflammati on. [facility] Diclofenac Sodium (VOLTAREN) 1 % gel 2022-04 00:00: 00 Yes [id number] Take 2-4 grams three times a day as needed for pain [facility] hydroxychlo roquine 200 mg tablet 2022-04 00:00: 00 Yes [id number] 200mg Take 1 tablet by mouth in the morning. [facility] traMADoL 50 mg tablet 2022-04 00:00: 00 Yes [id number] 50mg Take 1 tablet by mouth 2 (two) times daily with meals as needed for Pain (scale 7-10). Indication s: chronic pain, RA [facility] meloxicam 15 mg tablet 2022-04 00:00: 00 Yes [id number] 15mg Take 1 tablet by mouth once daily as needed for Pain or Inflammati on. [facility] mg tablet 2022-04 00:00: 00 02-22 00:00 :00 No [id number] 50mg Take 1 tablet by mouth 2 (two) times daily with meals as needed for Pain (scale 7-10). Indication s: chronic pain, RA [facility] aspirin (ADULT LOW DOSE ASPIRIN) 81 mg EC tablet 2022-04 00:00: 00 Yes [id number] 81mg Take 1 tablet by mouth in the morning. [facility] aspirin (ADULT LOW DOSE ASPIRIN) 81 mg EC tablet 2022-04 00:00: 00 Yes [id number] 81mg Take 1 tablet by mouth in the morning. [facility] aspirin (ADULT LOW DOSE ASPIRIN) 81 mg EC tablet 2022-04 00:00: 00 Yes [id number] 81mg Take 1 tablet by mouth in the morning. [facility] aspirin (ADULT LOW DOSE ASPIRIN) 81 mg EC tablet 2022-04 00:00: 00 Yes [id number] 81mg Take 1 tablet by mouth in the morning. [facility] aspirin (ADULT LOW DOSE ASPIRIN) 81 mg EC tablet 2022-04 00:00: 00 Yes [id number] 81mg Take 1 tablet by mouth in the morning. [facility] aspirin (ADULT LOW DOSE ASPIRIN) 81 mg EC tablet 2022-04 00:00: 00 Yes [id number] 81mg Take 1 tablet by mouth in the morning. [facility] aspirin (ADULT LOW DOSE ASPIRIN) 81 mg EC tablet 2022-04 00:00: 00 Yes [id number] 81mg Take 1 tablet by mouth in the morning. [facility] aspirin (ADULT LOW DOSE ASPIRIN) 81 mg EC tablet 2022-04 00:00: 00 Yes [id number] 81mg Take 1 tablet by mouth in the morning. [facility] aspirin (ADULT LOW DOSE ASPIRIN) 81 mg EC tablet 2022-04 00:00: 00 Yes [id number] 81mg Take 1 tablet by mouth in the morning. [facility] aspirin (ADULT LOW DOSE ASPIRIN) 81 mg EC tablet 2022-04 00:00: 00 Yes [id number] 81mg Take 1 tablet by mouth in the morning. [facility] aspirin (ADULT LOW DOSE ASPIRIN) 81 mg EC tablet 2022-04 00:00: 00 Yes [id number] 81mg Take 1 tablet by mouth in the morning. [facility] aspirin (ADULT LOW DOSE ASPIRIN) 81 mg EC tablet 2022-04 00:00: 00 Yes [id number] 81mg Take 1 tablet by mouth in the morning. [facility] aspirin (ADULT LOW DOSE ASPIRIN) 81 mg EC tablet 2022-04 00:00: 00 Yes [id number] 81mg Take 1 tablet by mouth in the morning. [facility] aspirin (ADULT LOW DOSE ASPIRIN) 81 mg EC tablet 2022-04 00:00: 00 Yes [id number] 81mg Take 1 tablet by mouth in the morning. [facility] aspirin (ADULT LOW DOSE ASPIRIN) 81 mg EC tablet 2022-04 00:00: 00 Yes [id number] 81mg Take 1 tablet by mouth in the morning. [facility] aspirin (ADULT LOW DOSE ASPIRIN) 81 mg EC tablet 2022-04 00:00: 00 Yes [id number] 81mg Take 1 tablet by mouth in the morning. [facility] aspirin (ADULT LOW DOSE ASPIRIN) 81 mg EC tablet 2022-04 00:00: 00 Yes [id number] 81mg Take 1 tablet by mouth in the morning. [facility] aspirin (ADULT LOW DOSE ASPIRIN) 81 mg EC tablet 2022-04 00:00: 00 Yes [id number] 81mg Take 1 tablet by mouth in the morning. [facility] aspirin (ADULT LOW DOSE ASPIRIN) 81 mg EC tablet 2022-04 00:00: 00 Yes [id number] 81mg Take 1 tablet by mouth in the morning. [facility] aspirin (ADULT LOW DOSE ASPIRIN) 81 mg EC tablet 2022-04 00:00: 00 Yes [id number] 81mg Take 1 tablet by mouth in the morning. [facility] aspirin (ADULT LOW DOSE ASPIRIN) 81 mg EC tablet 2022-04 00:00: 00 Yes [id number] 81mg Take 1 tablet by mouth in the morning. [facility] FARXIGA 10 mg tablet 2022-04 00:00: 00 Yes 10mg Take 1 tablet by mouth in the morning. [facility] 20[facility]-04 00:00: 00 Yes 40mg Take 1 tablet by mouth in the morning. [facility] FARXIGA 10 mg tablet 2022-04 00:00: 00 Yes 10mg Take 1 tablet by mouth in the morning. [facility] mg tablet 2022-04 00:00: 00 Yes 40mg Take 1 tablet by mouth in the morning. [facility] FARX[facility]A 10 mg tablet 2022-04 00:00: 00 Yes 10mg Take 1 tablet by mouth in the morning. [facility] FARXIGA 10 mg tablet 2022-04 00:00: 00 Yes 10mg Take 1 tablet by mouth in the morning. [facility] pravastatin 40 mg tablet 2022-04 00:00: 00 Yes 40mg Take 1 tablet by mouth in the morning. [facility] FARXIGA 10 mg tablet 2022-04 00:00: 00 Yes 10mg Take 1 tablet by mouth in the morning. [facility] pravastatin 40 mg tablet 2022-04 00:00: 00 Yes 40mg Take 1 tablet by mouth in the morning. [facility] FARXIGA 10 mg tablet 2022-04 00:00: 00 Yes 10mg Take 1 tablet by mouth in the morning. [facility] pravastatin 40 mg tablet 2022-04 00:00: 00 Yes 40mg Take 1 tablet by mouth in the morning. [facility] pravastatin 40 mg tablet 2022-04 00:00: 00 Yes 40mg Take 1 tablet by mouth in the morning. [facility] FARXIGA 10 mg tablet 2022-04 00:00: 00 Yes 10mg Take 1 tablet by mouth in the morning. [facility] pravastatin 40 mg tablet 2022-04 00:00: 00 Yes 40mg Take 1 tablet by mouth in the morning. [facility] FARXIGA 10 mg tablet 2022-04 00:00: 00 Yes 10mg Take 1 tablet by mouth in the morning. [facility] pravastatin 40 mg tablet 2022-04 00:00: 00 Yes 40mg Take 1 tablet by mouth in the morning. [facility] FARXIGA 10 mg tablet 2022-04 00:00: 00 Yes 10mg Take 1 tablet by mouth in the morning. [facility] pravastatin 40 mg tablet 2022-04 00:00: 00 Yes 40mg Take 1 tablet by mouth in the morning. [facility] FARXIGA 10 mg tablet 2022-04 00:00: 00 Yes 10mg Take 1 tablet by mouth in the morning. [facility] pravastatin 40 mg tablet 2022-04 00:00: 00 Yes 40mg Take 1 tablet by mouth in the morning. [facility] FARXIGA 10 mg tablet 2022-04 00:00: 00 Yes 10mg Take 1 tablet by mouth in the morning. [facility] pravastatin 40 mg tablet 2022-04 00:00: 00 Yes 40mg Take 1 tablet by mouth in the morning. [facility] FARXIGA 10 mg tablet 2022-04 00:00: 00 Yes 10mg Take 1 tablet by mouth in the morning. [facility] pravastatin 40 mg tablet 2022-04 00:00: 00 Yes 40mg Take 1 tablet by mouth in the morning. [facility] FARXIGA 10 mg tablet 2022-04 00:00: 00 Yes 10mg Take 1 tablet by mouth in the morning. [facility] pravastatin 40 mg tablet 2022-04 00:00: 00 Yes 40mg Take 1 tablet by mouth in the morning. [facility] FARXIGA 10 mg tablet 2022-04 00:00: 00 Yes 10mg Take 1 tablet by mouth in the morning. [facility] pravastatin 40 mg tablet 2022-04 00:00: 00 Yes 40mg Take 1 tablet by mouth in the morning. [facility] mg tablet 2022-04 00:00: 00 Yes 10mg Take 1 tablet by mouth in the morning. [facility] pravastatin 40 mg tablet 2022-04 00:00: 00 Yes 40mg Take 1 tablet by mouth in the morning. [facility] FARXIGA 10 mg tablet 2022-04 00:00: 00 Yes 10mg Take 1 tablet by mouth in the morning. [facility] pravastatin 40 mg tablet 2022-04 00:00: 00 Yes 40mg Take 1 tablet by mouth in the morning. [facility] FARXIGA 10 mg tablet 2022-04 00:00: 00 Yes 10mg Take 1 tablet by mouth in the morning. [facility] pravastatin 40 mg tablet 2022-04 00:00: 00 Yes 40mg Take 1 tablet by mouth in the morning. [facility] FARXIGA 10 mg tablet 2022-04 00:00: 00 Yes 10mg Take 1 tablet by mouth in the morning. [facility] FARXIGA 10 mg tablet 2022-04 00:00: 00 Yes 10mg Take 1 tablet by mouth in the morning. [facility] pravastatin 40 mg tablet 2022-04 00:00: 00 Yes 40mg Take 1 tablet by mouth in the morning. [facility] pravastatin 40 mg tablet 2022-04 00:00: 00 Yes 40mg Take 1 tablet by mouth in the morning. [facility] FARXIGA 10 mg tablet 2022-04 00:00: 00 Yes 10mg Take 1 tablet by mouth in the morning. [facility] pravastatin 40 mg tablet 2022-04 00:00: 00 Yes 40mg Take 1 tablet by mouth in the morning. [facility] FARXIGA 10 mg tablet 2022-04 00:00: 00 Yes 10mg Take 1 tablet by mouth in the morning. [facility] pravastatin 40 mg tablet 2022-04 00:00: 00 Yes 40mg Take 1 tablet by mouth in the morning. [facility] NOVOLOG FLEXPEN U-100 INSULIN 100 unit/mL (3 mL) injection 2022-04 00:00: 00 Yes [facility] NOVOLOG FLEXPEN U-100 INSULIN 100 unit/mL (3 mL) injection 2022-04 00:00: 00 Yes [facility] NOVOLOG FLEXPEN U-100 INSULIN 100 unit/mL (3 mL) injection 2022-04 00:00: 00 Yes [facility] NOVOLOG FLEXPEN U-100 INSULIN 100 unit/mL (3 mL) injection 2022-04 00:00: 00 Yes [facility] NOVOLOG FLEXPEN U-100 INSULIN 100 unit/mL (3 mL) injection 2022-04 00:00: 00 Yes [facility] NOVOLOG FLEXPEN U-100 INSULIN 100 unit/mL (3 mL) injection 2022-04 00:00: 00 Yes [facility] NOVOLOG FLEXPEN U-100 INSULIN 100 unit/mL (3 mL) injection 2022-04 00:00: 00 Yes [facility] NOVOLOG FLEXPEN U-100 INSULIN 100 unit/mL (3 mL) injection 2022-04 00:00: 00 Yes [facility] NOVOLOG FLEXPEN U-100 INSULIN 100 unit/mL (3 mL) injection 2022-04 00:00: 00 Yes [facility] NOVOLOG FLEXPEN U-100 INSULIN 100 unit/mL (3 mL) injection 2022-04 00:00: 00 Yes [facility] NOVOLOG FLEXPEN U-100 INSULIN 100 unit/mL (3 mL) injection 2022-04 00:00: 00 Yes [facility] NOVOLOG FLEXPEN U-100 INSULIN 100 unit/mL (3 mL) injection 2022-04 00:00: 00 Yes [facility] NOVOLOG FLEXPEN U-100 INSULIN 100 unit/mL (3 mL) injection 2022-04 00:00: 00 Yes [facility] NOVOLOG FLEXPEN U-100 INSULIN 100 unit/mL (3 mL) injection 2022-04 00:00: 00 Yes [facility] NOVOLOG FLEXPEN U-100 INSULIN 100 unit/mL (3 mL) injection 2022-04 00:00: 00 Yes [facility] NOVOLOG FLEXPEN U-100 INSULIN 100 unit/mL (3 mL) injection 2022-04 00:00: 00 Yes [facility] NOVOLOG FLEXPEN U-100 INSULIN 100 unit/mL (3 mL) injection 2022-04 00:00: 00 Yes [facility] NOVOLOG FLEXPEN U-100 INSULIN 100 unit/mL (3 mL) injection 2022-04 00:00: 00 Yes [facility] NOVOLOG FLEXPEN U-100 INSULIN 100 unit/mL (3 mL) injection 2022-04 00:00: 00 Yes [facility] NOVOLOG FLEXPEN U-100 INSULIN 100 unit/mL (3 mL) injection 2022-04 00:00: 00 Yes [facility] NOVOLOG FLEXPEN U-100 INSULIN 100 unit/mL (3 mL) injection 2022-04 00:00: 00 Yes [facility] TRESIBA FLEXTOUCH U-100 100 unit/mL (3 mL) In 2022-04 0 00:00: 00 Yes 20mg Take 20 mg by mouth in the morning. [facility] TRESIBA FLEXTOUCH U-100 100 unit/mL (3 mL) In 2022-04 0 00:00: 00 Yes 20mg Take 20 mg by mouth in the morning. [facility] TRESIBA FLEXTOUCH U-100 100 unit/mL (3 mL) In 2022-04 0 00:00: 00 Yes 20mg Take 20 mg by mouth in the morning. [facility] TRESIBA FLEXTOUCH U-100 100 unit/mL (3 mL) In 2022-04 0 00:00: 00 Yes 20mg Take 20 mg by mouth in the morning. [facility] TRESIBA FLEXTOUCH U-100 100 unit/mL (3 mL) [facility] 2022-04 0 00:00: 00 Yes 20mg Take 20 mg by mouth in the morning. [facility] TRESIBA FLEXTOUCH U-100 100 unit/mL (3 mL) [facility] 2022-04 0 00:00: 00 Yes 20mg Take 20 mg by mouth in the morning. [facility] TRESIBA FLEXTOUCH U-100 100 unit/mL (3 mL) [facility] 2022-04 0 00:00: 00 Yes 20mg Take 20 mg by mouth in the morning. [facility] TRESIBA FLEXTOUCH U-100 100 unit/mL (3 mL) [facility] 2022-04 00:00: 00 Yes 20mg Take 20 mg by mouth in the morning. [facility] TRESIBA FLEXTOUCH U-100 100 unit/mL (3 mL) [facility] 2022-04 00:00: 00 Yes 20mg Take 20 mg by mouth in the morning. [facility] TRESIBA FLEXTOUCH U-100 100 unit/mL (3 mL) [facility] 2022-04 00:00: 00 Yes 20mg Take 20 mg by mouth in the morning. [facility] TRESIBA FLEXTOUCH U-100 100 unit/mL (3 mL) [facility] 2022-04 00:00: 00 Yes 20mg Take 20 mg by mouth in the morning. [facility] TRESIBA FLEXTOUCH U-100 100 unit/mL (3 mL) [facility] 2022-04 00:00: 00 Yes 20mg Take 20 mg by mouth in the morning. [facility] TRESIBA FLEXTOUCH U-100 100 unit/mL (3 mL) [facility] 2022-04 0 00:00: 00 Yes 20mg Take 20 mg by mouth in the morning. [facility] TRESIBA FLEXTOUCH U-100 100 unit/mL (3 mL) [facility] 2022-04 0 00:00: 00 Yes 20mg Take 20 mg by mouth in the morning. [facility] TRESIBA FLEXTOUCH U-100 100 unit/mL (3 mL) [facility] 2022-04 0 00:00: 00 Yes 20mg Take 20 mg by mouth in the morning. [facility] TRESIBA FLEXTOUCH U-100 100 unit/mL (3 mL) [facility] 2022-04 00:00: 00 Yes 20mg Take 20 mg by mouth in the morning. [facility] TRESIBA FLEXTOUCH U-100 100 unit/mL (3 mL) [facility] 2022-04 0 00:00: 00 Yes 20mg Take 20 mg by mouth in the morning. [facility] TRESIBA FLEXTOUCH U-100 100 unit/mL (3 mL) [facility] 2022-04 00:00: 00 Yes 20mg Take 20 mg by mouth in the morning. [facility] TRESIBA FLEXTOUCH U-100 100 unit/mL (3 mL) [facility] 00:00: 00 Yes 20mg Take 20 mg by mouth in the morning. [facility] TRESIBA FLEXTOUCH U-100 100 unit/mL (3 mL) [facility] 2022-04 00:00: 00 Yes 20mg Take 20 mg by mouth in the morning. [facility] TRESIBA FLEXTOUCH U-100 100 unit/mL (3 mL) [facility] 00:00: 00 Yes 20mg Take 20 mg by mouth in the morning. [facility] metFORMIN 1,000 mg tablet 2022-04 0 00:00: 00 Yes 1000mg Take 1 tablet by mouth in the morning and 1 tablet in the evening. Take with meals. [facility] metFORMIN 1,000 mg tablet 00:00: 00 Yes 1000mg Take 1 tablet by mouth in the morning and 1 tablet in the evening. Take with meals. [facility] metFORMIN 1,000 mg tablet 2022-04 00:00: 00 Yes 1000mg Take 1 tablet by mouth in the morning and 1 tablet in the evening. Take with meals. [facility] metFORMIN 1,000 mg tablet 2023-1 0-14 00:00: 00 Yes 1000mg Take 1 tablet by mouth in the morning and 1 tablet in the evening. Take with meals. [facility] metFORMIN 1,000 mg tablet 2023-1 0-14 00:00: 00 Yes 1000mg Take 1 tablet by mouth in the morning and 1 tablet in the evening. Take with meals. [facility] metFORMIN 1,000 mg tablet 2023-1 0-14 00:00: 00 Yes 1000mg Take 1 tablet by mouth in the morning and 1 tablet in the evening. Take with meals. [facility] metFORMIN 1,000 mg tablet 2023-1 0-14 00:00: 00 Yes 1000mg Take 1 tablet by mouth in the morning and 1 tablet in the evening. Take with meals. [facility] metFORMIN 1,000 mg tablet 3-1 0-14 00:00: 00 Yes 1000mg Take 1 tablet by mouth in the morning and 1 tablet in the evening. Take with meals. [facility] metFORMIN 1,000 mg tablet 3-1 0-14 00:00: 00 Yes 1000mg Take 1 tablet by mouth in the morning and 1 tablet in the evening. Take with meals. [facility] metFORMIN 1,000 mg tablet 3-1 0-14 00:00: 00 Yes 1000mg Take 1 tablet by mouth in the morning and 1 tablet in the evening. Take with meals. [facility] metFORMIN 1,000 mg tablet 2023-1 0-14 00:00: 00 Yes 1000mg Take 1 tablet by mouth in the morning and 1 tablet in the evening. Take with meals. [facility] metFORMIN 1,000 mg tablet 2023-1 0-14 00:00: 00 Yes 1000mg Take 1 tablet by mouth in the morning and 1 tablet in the evening. Take with meals. [facility] metFORMIN 1,000 mg tablet 3-1 0-14 00:00: 00 Yes 1000mg Take 1 tablet by mouth in the morning and 1 tablet in the evening. Take with meals. [facility] metFORMIN 1,000 mg tablet 2023-1 0-14 00:00: 00 Yes 1000mg Take 1 tablet by mouth in the morning and 1 tablet in the evening. Take with meals. [facility] metFORMIN 1,000 mg tablet 2022- 0-14 00:00: 00 Yes 1000mg Take 1 tablet by mouth in the morning and 1 tablet in the evening. Take with meals. [facility] metFORMIN 1,000 mg tablet 2022-1 0-14 00:00: 00 Yes 1000mg Take 1 tablet by mouth in the morning and 1 tablet in the evening. Take with meals. [facility] metFORMIN 1,000 mg tablet 2022- 0-14 00:00: 00 Yes 1000mg Take 1 tablet by mouth in the morning and 1 tablet in the evening. Take with meals. [facility] metFORMIN 1,000 mg tablet 2022- 0-14 00:00: 00 Yes 1000mg Take 1 tablet by mouth in the morning and 1 tablet in the evening. Take with meals. [facility] metFORMIN 1,000 mg tablet 2022- 0-14 00:00: 00 Yes 1000mg Take 1 tablet by mouth in the morning and 1 tablet in the evening. Take with meals. [facility] metFORMIN 1,000 mg tablet 2022- 014 00:00: 00 Yes 1000mg Take 1 tablet by mouth in the morning and 1 tablet in the evening. Take with meals. [facility] metFORMIN 1,000 mg tablet 2022- 014 00:00: 00 Yes 1000mg Take 1 tablet by mouth in the morning and 1 tablet in the evening. Take with meals. [facility] BD ULTRA-FINE MICRO PEN NEEDLE 32 gauge x 1/4" Ndle 2022-04 0-07 00:00: 00 Yes USE 1 UNIT SUBCUTANEO USLY TWICE DAILY [facility] BD ULTRA-FINE MICRO PEN NEEDLE 32 gauge x 1/4" Ndle 2022-04 0-07 00:00: 00 Yes USE 1 UNIT SUBCUTANEO USLY TWICE DAILY [facility] BD ULTRA-FINE MICRO PEN NEEDLE 32 gauge x 1/4" Ndle 2022-04 0-07 00:00: 00 Yes USE 1 UNIT SUBCUTANEO USLY TWICE DAILY [facility] BD ULTRA-FINE MICRO PEN NEEDLE 32 gauge x 1/4" Ndle 2023-1 0-07 00:00: 00 Yes USE 1 UNIT SUBCUTANEO USLY TWICE DAILY [facility] BD ULTRA-FINE MICRO PEN NEEDLE 32 gauge x 1/4" Ndle 2022-04 0-07 00:00: 00 Yes USE 1 UNIT SUBCUTANEO USLY TWICE DAILY [facility] BD ULTRA-FINE MICRO PEN NEEDLE 32 gauge x 1/4" Ndle 2022-04 0-07 00:00: 00 Yes USE 1 UNIT SUBCUTANEO USLY TWICE DAILY [facility] BD ULTRA-FINE MICRO PEN NEEDLE 32 gauge x 1/4" Ndle 2022-04 0-07 00:00: 00 Yes USE 1 UNIT SUBCUTANEO USLY TWICE DAILY [facility] BD ULTRA-FINE MICRO PEN NEEDLE 32 gauge x 1/4" Ndle 2022-04 0-07 00:00: 00 Yes USE 1 UNIT SUBCUTANEO USLY TWICE DAILY [facility] BD ULTRA-FINE MICRO PEN NEEDLE 32 gauge x 1/4" Ndle 2022-04 0-07 00:00: 00 Yes USE 1 UNIT SUBCUTANEO USLY TWICE DAILY [facility] BD ULTRA-FINE MICRO PEN NEEDLE 32 gauge x 1/4" Ndle 2022-04 0-07 00:00: 00 Yes USE 1 UNIT SUBCUTANEO USLY TWICE DAILY [facility] BD ULTRA-FINE MICRO PEN NEEDLE 32 gauge x 1/4" Ndle 2022-04 0-07 00:00: 00 Yes USE 1 UNIT SUBCUTANEO USLY TWICE DAILY [facility] BD ULTRA-FINE MICRO PEN NEEDLE 32 gauge x 1/4" Ndle 2022-04 0-07 00:00: 00 Yes USE 1 UNIT SUBCUTANEO USLY TWICE DAILY [facility] BD ULTRA-FINE MICRO PEN NEEDLE 32 gauge x 1/4" Ndle 2022-04 0-07 00:00: 00 Yes USE 1 UNIT SUBCUTANEO USLY TWICE DAILY [facility] BD ULTRA-FINE MICRO PEN NEEDLE 32 gauge x 1/4" Ndle 2022-04 0-07 00:00: 00 Yes USE 1 UNIT SUBCUTANEO USLY TWICE DAILY [facility] BD ULTRA-FINE MICRO PEN NEEDLE 32 gauge x 1/4" Ndle 2022-04 0-07 00:00: 00 Yes USE 1 UNIT SUBCUTANEO USLY TWICE DAILY [facility] BD ULTRA-FINE MICRO PEN NEEDLE 32 gauge x 1/4" Ndle 2022-04 0-07 00:00: 00 Yes USE 1 UNIT SUBCUTANEO USLY TWICE DAILY [facility] BD ULTRA-FINE MICRO PEN NEEDLE 32 gauge x 1/4" Ndle 2022-04 0-07 00:00: 00 Yes USE 1 UNIT SUBCUTANEO USLY TWICE DAILY [facility] BD ULTRA-FINE MICRO PEN NEEDLE 32 gauge x 1/4" Ndle 2022- 0-07 00:00: 00 Yes USE 1 UNIT SUBCUTANEO USLY TWICE DAILY [facility] ULTRA-FINE MICRO PEN NEEDLE 32 gauge x 1/4" Ndle 2022-04 0-07 00:00: 00 Yes USE 1 UNIT SUBCUTANEO USLY TWICE DAILY [facility] BD ULTRA-FINE MICRO PEN NEEDLE 32 gauge x 1/4" Ndle 2022-04 0-07 00:00: 00 Yes USE 1 UNIT SUBCUTANEO USLY TWICE DAILY [facility] BD ULTRA-FINE MICRO PEN NEEDLE 32 gauge x 1/4" Ndle 2022-04 0-07 00:00: 00 Yes USE 1 UNIT SUBCUTANEO USLY TWICE DAILY [facility] celecoxib 200 mg capsule 2022-0 12-30 00:00: 00 Yes 200mg Take 1 capsule by mouth in the morning. [facility] celecoxib 200 mg capsule 3-0 12-30 00:00: 00 Yes 200mg Take 1 capsule by mouth in the morning. [facility] mg capsule 3-0 - 00:00: 00 Yes 200mg Take 1 capsule by mouth in the morning. [facility] cele[facility] 200 mg capsule 3-0 - 00:00: 00 Yes 200mg Take 1 capsule by mouth in the morning. [facility] cele[facility]ib 200 mg capsule 3-0 - 00:00: 00 Yes 200mg Take 1 capsule by mouth in the morning. [facility] celecoxib 200 mg capsule 3-0 12-30 00:00: 00 Yes 200mg Take 1 capsule by mouth in the morning. [facility] celecoxib 200 mg capsule 3-0 12-30 00:00: 00 Yes 200mg Take 1 capsule by mouth in the morning. [facility] celecoxib 200 mg capsule 3-0 12-30 00:00: 00 Yes 200mg Take 1 capsule by mouth in the morning. [facility] celecoxib 200 mg capsule 3-0 12-30 00:00: 00 Yes 200mg Take 1 capsule by mouth in the morning. [facility] celecoxib 200 mg capsule 3-0 12-30 00:00: 00 Yes 200mg Take 1 capsule by mouth in the morning. [facility] celecoxib 200 mg capsule 3-0 12-30 00:00: 00 Yes 200mg Take 1 capsule by mouth in the morning. [facility] celecoxib 200 mg capsule 3-0 12-30 00:00: 00 Yes 200mg Take 1 capsule by mouth in the morning. [facility] celecoxib 200 mg capsule 3-0 12-30 00:00: 00 Yes 200mg Take 1 capsule by mouth in the morning. [facility] celecoxib 200 mg capsule 3-0 12-30 00:00: 00 Yes 200mg Take 1 capsule by mouth in the morning. [facility] celecoxib 200 mg capsule 3-0 12-30 00:00: 00 Yes 200mg Take 1 capsule by mouth in the morning. [facility] celecoxib 200 mg capsule 3-0 12-30 00:00: 00 Yes 200mg Take 1 capsule by mouth in the morning. [facility] celecoxib 200 mg capsule 3-0 12-30 00:00: 00 03-13 00:00 :00 No 200mg Take 1 capsule by mouth in the morning. [facility] celecoxib 200 mg capsule 3-0 12-30 00:00: 00 03-13 00:00 :00 No 200mg Take 1 capsule by mouth in the morning. [facility] ipratropium -albuteroL 0.5 mg-3 mg(2.5 mg base)/3 mL nebulizer solution 0 12-22 00:00: 00 Yes 3mL Inhale 3 mL 3 (three) times daily as needed for Chest tightness or Shortness of Breath. [facility] ipratropium -albuteroL 0.5 mg-3 mg(2.5 mg base)/3 mL nebulizer solution 0 12-22 00:00: 00 Yes 3mL Inhale 3 mL 3 (three) times daily as needed for Chest tightness or Shortness of Breath. [facility] ipratropium -albuteroL 0.5 mg-3 mg(2.5 mg base)/3 mL nebulizer solution 0 12-22 00:00: 00 Yes 3mL Inhale 3 mL 3 (three) times daily as needed for Chest tightness or Shortness of Breath. [facility] ipratropium -albuteroL 0.5 mg-3 mg(2.5 mg base)/3 mL nebulizer solution 0 12-22 00:00: 00 Yes 3mL Inhale 3 mL 3 (three) times daily as needed for Chest tightness or Shortness of Breath. [facility] ipratropium -albuteroL 0.5 mg-3 mg(2.5 mg base)/3 mL nebulizer solution 0 12-22 00:00: 00 Yes 3mL Inhale 3 mL 3 (three) times daily as needed for Chest tightness or Shortness of Breath. [facility] ipratropium -albuteroL 0.5 mg-3 mg(2.5 mg base)/3 mL nebulizer solution 0 12-22 00:00: 00 Yes 3mL Inhale 3 mL 3 (three) times daily as needed for Chest tightness or Shortness of Breath. [facility] ipratropium -albuteroL 0.5 mg-3 mg(2.5 mg base)/3 mL nebulizer solution 0 12-22 00:00: 00 Yes 3mL Inhale 3 mL 3 (three) times daily as needed for Chest tightness or Shortness of Breath. [facility] ipratropium -albuteroL 0.5 mg-3 mg(2.5 mg base)/3 mL nebulizer solution 2022-0 15 00:00: 00 Yes 3mL Inhale 3 mL 3 (three) times daily as needed for Chest tightness or Shortness of Breath. [facility] ipratropium -albuteroL 0.5 mg-3 mg(2.5 mg base)/3 mL nebulizer solution 2022-0 -15 00:00: 00 Yes 3mL Inhale 3 mL 3 (three) times daily as needed for Chest tightness or Shortness of Breath. [facility] ipratropium -albuteroL 0.5 mg-3 mg(2.5 mg base)/3 mL nebulizer solution 2022-0 15 00:00: 00 Yes 3mL Inhale 3 mL 3 (three) times daily as needed for Chest tightness or Shortness of Breath. [facility] ipratropium -albuteroL 0.5 mg-3 mg(2.5 mg base)/3 mL nebulizer solution 0 12-22 00:00: 00 Yes 3mL Inhale 3 mL 3 (three) times daily as needed for Chest tightness or Shortness of Breath. [facility] ipratropium -albuteroL 0.5 mg-3 mg(2.5 mg base)/3 mL nebulizer solution 0 15 00:00: 00 Yes 3mL Inhale 3 mL 3 (three) times daily as needed for Chest tightness or Shortness of Breath. [facility] ipratropium -albuteroL 0.5 mg-3 mg(2.5 mg base)/3 mL nebulizer solution 2022-0 15 00:00: 00 Yes 3mL Inhale 3 mL 3 (three) times daily as needed for Chest tightness or Shortness of Breath. [facility] ipratropium -albuteroL 0.5 mg-3 mg(2.5 mg base)/3 mL nebulizer solution 0 15 00:00: 00 Yes 3mL Inhale 3 mL 3 (three) times daily as needed for Chest tightness or Shortness of Breath. [facility] ipratropium -albuteroL 0.5 mg-3 mg(2.5 mg base)/3 mL nebulizer solution 12-22 00:00: 00 Yes 3mL Inhale 3 mL 3 (three) times daily as needed for Chest tightness or Shortness of Breath. [facility] ipratropium -albuteroL 0.5 mg-3 mg(2.5 mg base)/3 mL nebulizer solution 12-22 00:00: 00 Yes 3mL Inhale 3 mL 3 (three) times daily as needed for Chest tightness or Shortness of Breath. [facility] ipratropium -albuteroL 0.5 mg-3 mg(2.5 mg base)/3 mL nebulizer solution 12-22 00:00: 00 Yes 3mL Inhale 3 mL 3 (three) times daily as needed for Chest tightness or Shortness of Breath. [facility] ipratropium -albuteroL 0.5 mg-3 mg(2.5 mg base)/3 mL nebulizer solution 12-22 00:00: 00 Yes 3mL Inhale 3 mL 3 (three) times daily as needed for Chest tightness or Shortness of Breath. [facility] ipratropium -albuteroL 0.5 mg-3 mg(2.5 mg base)/3 mL nebulizer solution 12-22 00:00: 00 Yes 3mL Inhale 3 mL 3 (three) times daily as needed for Chest tightness or Shortness of Breath. [facility] ipratropium -albuteroL 0.5 mg-3 mg(2.5 mg base)/3 mL nebulizer solution 12-22 00:00: 00 Yes 3mL Inhale 3 mL 3 (three) times daily as needed for Chest tightness or Shortness of Breath. [facility] ipratropium -albuteroL 0.5 mg-3 mg(2.5 mg base)/3 mL nebulizer solution 12-22 00:00: 00 Yes 3mL Inhale 3 mL 3 (three) times daily as needed for Chest tightness or Shortness of Breath. [facility] losartan-hy drochloroth iazide 100-12.5 mg per tablet 0 11-27 00:00: 00 Yes 1{tbl} Take 1 tablet by mouth in the morning. [facility] losartan-hy drochloroth iazide 100-12.5 mg per tablet 0 11-27 00:00: 00 Yes 1{tbl} Take 1 tablet by mouth in the morning. [facility] losartan-hy drochloroth iazide 100-12.5 mg per tablet 0 11-27 00:00: 00 Yes 1{tbl} Take 1 tablet by mouth in the morning. [facility] losartan-hy drochloroth iazide 100-12.5 mg per tablet 0 11-27 00:00: 00 Yes 1{tbl} Take 1 tablet by mouth in the morning. [facility] losartan-hy drochloroth iazide 100-12.5 mg per tablet 0 11-27 00:00: 00 Yes 1{tbl} Take 1 tablet by mouth in the morning. [facility] losartan-hy drochloroth iazide 100-12.5 mg per tablet 0 11-27 00:00: 00 Yes 1{tbl} Take 1 tablet by mouth in the morning. [facility] losartan-hy drochloroth iazide 100-12.5 mg per tablet 0 11-27 00:00: 00 Yes 1{tbl} Take 1 tablet by mouth in the morning. [facility] losartan-hy drochloroth iazide 100-12.5 mg per tablet 0 11-27 00:00: 00 Yes 1{tbl} Take 1 tablet by mouth in the morning. [facility] losartan-hy drochloroth iazide 100-12.5 mg per tablet 0 11-27 00:00: 00 Yes 1{tbl} Take 1 tablet by mouth in the morning. [facility] losartan-hy drochloroth iazide 100-12.5 mg per tablet 0 11-27 00:00: 00 Yes 1{tbl} Take 1 tablet by mouth in the morning. [facility] losartan-hy drochloroth iazide 100-12.5 mg per tablet 0 11-27 00:00: 00 Yes 1{tbl} Take 1 tablet by mouth in the morning. [facility] losartan-hy drochloroth iazide 100-12.5 mg per tablet 0 11-27 00:00: 00 Yes 1{tbl} Take 1 tablet by mouth in the morning. [facility] losartan-hy drochloroth iazide 100-12.5 mg per tablet 0 11-27 00:00: 00 Yes 1{tbl} Take 1 tablet by mouth in the morning. [facility] losartan-hy drochloroth iazide 100-12.5 mg per tablet 0 11-27 00:00: 00 Yes 1{tbl} Take 1 tablet by mouth in the morning. [facility] losartan-hy drochloroth iazide 100-12.5 mg per tablet 0 11-27 00:00: 00 Yes 1{tbl} Take 1 tablet by mouth in the morning. [facility] losartan-hy drochloroth iazide 100-12.5 mg per tablet 0 11-27 00:00: 00 Yes 1{tbl} Take 1 tablet by mouth in the morning. [facility] losartan-hy drochloroth iazide 100-12.5 mg per tablet 0 11-27 00:00: 00 Yes 1{tbl} Take 1 tablet by mouth in the morning. [facility] losartan-hy drochloroth iazide 100-12.5 mg per tablet 0 11-27 00:00: 00 Yes 1{tbl} Take 1 tablet by mouth in the morning. [facility] losartan-hy drochloroth iazide 100-12.5 mg per tablet 0 11-27 00:00: 00 Yes 1{tbl} Take 1 tablet by mouth in the morning. [facility] losartan-hy drochloroth iazide 100-12.5 mg per tablet 0 11-27 00:00: 00 Yes 1{tbl} Take 1 tablet by mouth in the morning. [facility] losartan-hy drochloroth iazide 100-12.5 mg per tablet 2022-0 8-21 00:00: 00 Yes 1{tbl} Take 1 tablet by mouth in the morning. [facility] Immunizations Ordered Immunization Name Filled Immunization Name Date Status Comments Source Pneumococcal 20 Conjugate, PCV20 (Prevnar 20) Unknown Completed [facility] [place] [place] TDAP Unknown Completed [facility] [place] [place] Zoster Vaccine Recombinant Unknown Completed [facility] [place] [place] Pneumococcal 20 Conjugate, PCV20 (Prevnar 20) Unknown Completed [facility] [place] [place] TDAP Unknown Completed [facility] [place] [place] Zoster Vaccine Recombinant Unknown Completed [facility] [place] [place] Pneumococcal 20 Conjugate, PCV20 (Prevnar 20) Unknown Completed [facility] [place] [place] TDAP Unknown Completed [facility] [place] [place] Zoster Vaccine Recombinant Unknown Completed [facility] [place] [place] Pneumococcal 20 Conjugate, PCV20 (Prevnar 20) Unknown Completed [facility] [place] [place] TDAP Unknown Completed [facility] [place] [place] Zoster Vaccine Recombinant Unknown Completed [facility] [place] [place] Pneumococcal 20 Conjugate, PCV20 (Prevnar 20) Unknown Completed [facility] [place] [place] TDAP Unknown Completed [facility] [place] [place] Zoster Vaccine Recombinant Unknown Completed [facility] [place] [place] Pneumococcal 20 Conjugate, PCV20 (Prevnar 20) Unknown Completed [facility] [place] [place] TDAP Unknown Completed [facility] [place] [place] Zoster Vaccine Recombinant Unknown Completed [facility] [place] [place] Pneumococcal 20 Conjugate, PCV20 (Prevnar 20) Unknown Completed [facility] [place] [place] TDAP Unknown Completed [facility] [place] [place] Pneumococcal 20 Conjugate, PCV20 (Prevnar 20) Unknown Completed [facility] [place] [place] Zoster Vaccine Recombinant Unknown Completed [facility] [place] [place] TDAP Unknown Completed [facility] [place] [place] Pneumococcal 20 Conjugate, PCV20 (Prevnar 20) Unknown Completed [facility] [place] [place] TDAP Unknown Completed [facility] [place] [place] Zoster Vaccine Recombinant Unknown Completed [facility] [place] [place] Zoster Vaccine Recombinant Unknown Completed [facility] [place] [place] Pneumococcal 20 Conjugate, PCV20 (Prevnar 20) Unknown Completed [facility] [place] [place] TDAP Unknown Completed [facility] [place] [place] Zoster Vaccine Recombinant Unknown Completed [facility] [place] [place] Pneumococcal 20 Conjugate, PCV20 (Prevnar 20) Unknown Completed [facility] [place] [place] TDAP Unknown Completed [facility] [place] [place] Zoster Vaccine Recombinant Unknown Completed [facility] [place] [place] Pneumococcal 20 Conjugate, PCV20 (Prevnar 20) Unknown Completed [facility] [place] [place] TDAP Unknown Completed [facility] [place] [place] Zoster Vaccine Recombinant Unknown Completed [facility] [place] [place] Pneumococcal 20 Conjugate, PCV20 (Prevnar 20) Unknown Completed [facility] [place] [place] TDAP Unknown Completed [facility] [place] [place] Zoster Vaccine Recombinant Unknown Completed [facility] [place] [place] Pneumococcal 20 Conjugate, PCV20 (Prevnar 20) Unknown Completed [facility] [place] [place] TDAP Unknown Completed [facility] [place] [place] Zoster Vaccine Recombinant Unknown Completed [facility] [place] [place] Pneumococcal 20 Conjugate, PCV20 (Prevnar 20) Unknown Completed [facility] [place] [place] TDAP Unknown Completed [facility] [place] [place] Zoster Vaccine Recombinant Unknown Completed [facility] [place] [place] Pneumococcal 20 Conjugate, PCV20 (Prevnar 20) Unknown Completed [facility] [place] [place] TDAP Unknown Completed [facility] [place] [place] Zoster Vaccine Recombinant Unknown Completed [facility] [place] [place] Pneumococcal 20 Conjugate, PCV20 (Prevnar 20) Unknown Completed [facility] [place] [place] TDAP Unknown Completed [facility] [place] [place] Zoster Vaccine Recombinant Unknown Completed [facility] [place] [place] Pneumococcal 20 Conjugate, PCV20 (Prevnar 20) Unknown Completed [facility] [place] [place] TDAP Unknown Completed [facility] [place] [place] Zoster Vaccine Recombinant Unknown Completed [facility] [place] [place] Pneumococcal 20 Conjugate, PCV20 (Prevnar 20) Unknown Completed [facility] [place] [place] TDAP Unknown Completed [facility] [place] [place] Zoster Vaccine Recombinant Unknown Completed [facility] [place] [place] Pneumococcal 20 Conjugate, PCV20 (Prevnar 20) Unknown Completed [facility] [place] [place] TDAP Unknown Completed [facility] [place] [place] Zoster Vaccine Recombinant Unknown Completed [facility] [place] [place] Pneumococcal 20 Conjugate, PCV20 (Prevnar 20) Unknown Completed [facility] [place] [place] TDAP Unknown Completed [facility] [place] [place] Zoster Vaccine Recombinant Unknown Completed [facility] [place] [place] Vital Signs Vital Name Observation Time Observation Value Comments S ource Systolic blood pressure 2023-04-26 23:38:00 138 mm[Hg] [place] [facility] Diastolic blood pressure 2023-04-26 23:38:00 75 mm[Hg] [facility] Heart rate 2023-04-26 23:38:00 67 [facility] Body temperature 2023-04-26 23:38:[address] [facility] [place] [place] Respiratory rate 2023-04-26 23:38:00 22 /min [facility] [place] [place] Body height 2023-04-26 23:38:00 154.9 cm [facility] Body weight 2023-04-26 23:38:00 71.442 kg [facility] BMI 2023-04-26 23:38:00 29.76 kg/m2 [facility] Oxygen saturation in Arterial blood by Pulse oximetry 2023-04-26 23:38:00 95 /min [facility] Systolic blood pressure 2023-03-13 21:33:00 155 mm[Hg] [facility] Diastolic blood pressure 2023-03-13 21:33:00 87 mm[Hg] [facility] Heart rate 2023-03-13 21:29:00 82 /min [facility] Body temperature 2023-03-13 21:29:[address] [facility] [place] [place] Respiratory rate 2023-03-13 21:29:00 18 /min [facility] [place] [place] Body height 2023-03-13 21:29:00 152.4 cm [facility] Body weight 2023-03-13 21:29:00 73.619 kg [facility] BMI 2023-03-13 21:29:00 31.70 kg/m2 [facility] Oxygen saturation in Arterial blood by Pulse oximetry 2023-03-13 21:29:00 98 /min [facility] Systolic blood pressure 2023-02-13 22:02:00 139 mm[Hg] [facility] Diastolic blood pressure 2023-02-13 22:02:00 78 mm[Hg] [facility] Heart rate 2023-02-13 22:01:00 62 /min [facility] Body temperature 2023-02-13 22:01:[address] [facility] [place] [place] Respiratory rate 2023-02-13 22:01:00 18 /min [facility] [place] [place] Body height 2023-02-13 22:01:00 152.4 cm [facility] Body weight 2023-02-13 22:01:00 75.342 kg [facility] BMI 2023-02-13 22:01:00 32.44 kg/m2 [facility] Oxygen saturation in Arterial blood by Pulse oximetry 2023-02-13 22:01:00 96 /min [facility] Procedures Procedure Date / Time Performed Performing Clinician Source ASSIGNMENT OF BENEFITS 2023-03-13 21:19:25 Docto r Unassigned, [place] [facility] [place] THYROID STIMULATING HORMONE 2023-02-13 22:58:[address] [facility] [place] [place] COMP. METABOLIC PANEL (27047) 2023-02-13 22:58:[address] [facility] [place] [place] LIPID PANEL (05280)(TOTAL CHOLESTEROL, TRIGLYCERIDES, HDL) 2023-02-13 22:58:[address] [facility] [place] [place] CBC WITH DIFF 2023-02-13 22:58:00 [facility] GLYCOSYL[facility] HEMOGLOBIN (A1C) 2023-02-13 22:58:[address] [facility] [place] [place] FREE T3 2023-02-13 22:58:00 Shoshana Everett Un [facility] FREE T4 2023-02-13 22:58:00 Shoshana Everett Un [facility] ASSIGNMENT OF BENEFITS 2023-02-13 22:47:58 Docto r Unassigned, [place] [facility] [place] [place] Encounters Start Date/Time End Date/Time Encounter Type Admission Type Attending [facility] Facility Care Department Encounter ID Source 2023-04-27 11:00:00 2023-04-27 11:00:00 Outpatient R UNKNOWN, ATTENDING [facility] [id number] [facility] 2023-04-26 17:40:00 2023-04-26 20:07:55 Outpatient R MAGDALENE ZAZUETA [facility] [id number] [facility] 2023-04-26 17:40:00 2023-04-26 18:00:00 Urgent Care Magdalene Zazueta Unknown, Attending [facility] 1.2.840.114 350.1.13.10 4.2.7.2.686 [id number] [facility] 2023-04-06 00:00:00 2023-04-06 00:00:00 Refill Shoshana Everett [facility] 1.2.840.114 350.1.13.10 4.2.7.2.686 [id number] [facility] 2023-03-13 15:40:00 2023-03-13 15:58:15 Outpatient R OB-Angelo ARCINIEGAZOMA OBI-DEMIAN [facility] [id number] [facility] 2023-03-13 15:40:00 2023-03-13 15:58:15 [facility] 1.2.840.114 350.1.13.10 4.2.7.2.686 [id number] [facility] 2023-03-13 00:00:00 2023-03-13 00:00:00 Orders Only Doctor Unassigned, [place] [facility] 1.2840.114 350.1.13.10 4.2.7.2.686 [id number] [facility] 2023-03-09 00:00:00 2023-03-09 00:00:00 [facility] Secure [facility] 1.2.840.114 350.1.13.10 4.2.7.2.686 [id number] [facility] 2023-02-22 00:00:00 2023-02-22 00:00:00 Refill Ilda, Shoshana [facility] 1.2.840.114 350.1.13.10 4.2.7.2.686 [id number] [facility] 2023-02-19 00:00:00 2023-02-19 00:00:00 Telephone Shoshana Everett [facility] 1.2.840.114 350.1.13.10 4.2.7.2.686 [id number] [facility] 2023-02-15 00:00:00 2023-02-15 00:00:00 Telephone Shoshana Everett [facility] 1.2.840.114 350.1.13.10 4.2.7.2.686 [id number] [facility] 2023-02-14 00:00:00 2023-02-14 00:00:00 Telephone Daly Mckinnon [facility] 1.2.840.114 350.1.13.10 4.2.7.2.686 [id number] [facility] 2023-02-14 00:00:00 2023-02-14 00:00:00 Telephone Shoshana Everett [facility] 1.2.840.114 350.1.13.10 4.2.7.2.686 [id number] [facility] 2023-02-14 00:00:00 2023-02-14 00:00:00 Telephone Shoshana Everett [facility] 1.2.840.114 350.1.13.10 4.2.7.2.686 [id number] [facility] 2023-02-13 16:45:00 2023-02-13 17:00:00 Medical Recruiter Visit Pob, Adc Lab Main Shoshana Everett [facility] 1.2.840.114 350.1.13.10 4.2.7.2.686 [id number] [facility] 2023-02-13 16:00:00 2023-02-13 16:32:27 Outpatient R SHOSHANA EVERETT OGECHUKWU [facility] [id number] [facility] 2023-02-13 16:00:00 2023-02-13 16:32:27 Office Visit Shoshana Everett [facility] 1.2.840.114 350.1.13.10 4.2.7.2.686 [id number] [facility] 2023-02-13 00:00:00 2023-02-13 00:00:00 Orders Only Doctor Unassigned, [place] [facility] 1..840.114 350.1.13.10 4.2.7.2.686 [id number] [facility] Results Test Description Test Time Test Comments Results Result Co mments Source [facility] [place] [place] STIM[place] [id number] 00:25:16 * Test Item Value Reference Range Interpretation Comme nts TSH (test code = 3039945963) 3.10 See_Comment [Automated messa ge] The system which generated this result transmitted reference range: 0.45 - 4.70 mIU/L. The reference range was not used to interpret this result as normal/abnormal. Lab Interpretation (test code = 69756-0) Normal [facility] [id number] 00:11:54* Test Item Value Reference Range Interpretation Comme nts FREE T4 (test code = 4118703808) 1.22 See_Comment [Automated messa ge] The system which generated this result transmitted reference range: 0.78 - 2.20 ng/dL:. The reference range was not used to interpret this result as normal/abnormal. Lab Interpretation (test code = 08584-2) Normal [facility] [id number] 00:11:54* Test Item Value Reference Range Interpretation Comme nts FREE T4 (test code = 9311579624) 1.22 See_Comment [Automated messa ge] The system which generated this result transmitted reference range: 0.78 - 2.20 ng/dL:. The reference range was not used to interpret this result as normal/abnormal. Lab Interpretation (test code = 95784-4) Normal [facility] [id number] 00:11:34* Test Item Value Reference Range Interpretation Comme nts FREE T3 (test code = 3750844169) 3.75 pg/mL 2.77-5.27 Lab Interpretation (test cod e = 37107-1) Normal [facility] [id number] 00:11:34* Test Item Value Reference Range Interpretation Comme nts FREE T3 (test code = 7920410963) 3.75 pg/mL 2.77-5.27 Lab Interpretation (test cod e = 20344-9) Normal [facility] [place], TXLIPID PANEL (72664)(TOTAL CHOLESTEROL, TRIGLYCERIDES, HDL)2023-02-13 23:55:10* Test Item Value Reference Range Interpretation Comme nts CHOL (test code = 6831234002) 163 mg/dL 120-200 HDL (test code = 5250673801) 66 mg/dL >=50 HDLC RATIO (test code = 0191952426) 2.5 <=4.5 TRIG (test code = 5358835743) 139 mg/dL 30-170 LDL CHOL (test code = 80564-5) 69 mg/dL <=160 VLDL (test code = 6708648524) 28 mg/dL 5-60 Lab Interpretation (test cod e = 41600-4) Normal [facility] [place] TXLIPID PANEL (73810)(TOTAL CHOLESTEROL, TRIGLYCERIDES, HDL)2023-02-13 23:55:10* Test Item Value Reference Range Interpretation Comme nts CHOL (test code = 0477382021) 163 mg/dL 120-200 HDL (test code = 2690209622) 66 mg/dL >=50 HDLC RATIO (test code = 9017378100) 2.5 <=4.5 TRIG (test code = 9276068187) 139 mg/dL 30-170 LDL CHOL (test code = 22120-7) 69 mg/dL <=160 VLDL (test code = 9198001417) 28 mg/dL 5-60 Lab Interpretation (test cod e = 89583-6) Normal [facility] [place]COMP. METABOLIC PANEL (66832)2023-02-13 23:54:50* Test Item Value Reference Range Interpretation Comme nts NA (test code = 8304625437) 129 mmol/L 135-145 L K (test code = 9648495989) 4.3 mmol/L 3.5-5.0 CL (test code = 6402457224) 92 mmol/L 98-108 L CO2 TOTAL (test code = 1750750169) 29 mmol/L 23-31 AGAP (test code = 4965613894) 8 2-16 BUN (test code = 5726968187) 15 mg/dL 7-23 GLUCOSE (test code = 6325747620) 91 mg/dL 70-110 CREATININE (test code = 9756823680) 0.54 mg/dL 0.50-1.04 TOTAL BILI (test code = 2073984397) 0.3 mg/dL 0.1-1.1 CALCIUM (test code = 9794849575) 9.8 mg/dL 8.6-10.6 T PROTEIN (test code = 4807369601) 7.2 g/dL 6.3-8.2 ALBUMIN (test code = 0811435564) 4.3 g/dL 3.5-5.0 ALK PHOS (test code = 7093616985) 57 U/L 34-122 ALTv (test code = 1742-6) 12 U/L 5-35 AST(SGOT) (test code = 9035516454) 16 U/L 13-40 eGFR (test code = 27044-0) 97.4 mL/min/1.73m2 CKD-EPI eGFR (2020). Assuming creatinine has been stable day-to-day for at least three months, the eGFR indicates Category G1 (>= 90 mL/min/1.73 m2) Lab Interpretation (test code = 68628-8) Abnormal [facility] METABOLIC PANEL (03031)2023-02-13 23:54:50* Test Item Value Reference Range Interpretation Comme nts NA (test code = 4952589976) 129 mmol/L 135-145 L K (test code = 7537839641) 4.3 mmol/L 3.5-5.0 CL (test code = 5366287998) 92 mmol/L 98-108 L CO2 TOTAL (test code = 3908935281) 29 mmol/L 23-31 AGAP (test code = 9367709107) 8 2-16 BUN (test code = 9755064752) 15 mg/dL 7-23 GLUCOSE (test code = 2855393964) 91 mg/dL 70-110 CREATININE (test code = 7362839149) 0.54 mg/dL 0.50-1.04 TOTAL BILI (test code = [id number]) 0.3 mg/dL 0.1-1.1 CALCIUM (test code = 4637794759) 9.8 mg/dL 8.6-10.6 T PROTEIN (test code = 1649361604) 7.2 g/dL 6.3-8.2 ALBUMIN (test code = 3169511000) 4.3 g/dL 3.5-5.0 ALK PHOS (test code = 8732618282) 57 U/L 34-122 ALTv (test code = 1742-6) 12 U/L 5-35 AST(SGOT) (test code = 8843805244) 16 U/L 13-40 eGFR (test code = 47098-2) 97.4 mL/min/1.73m2 CKD-EPI eGFR (2020). Assuming creatinine has been stable day-to-day for at least three months, the eGFR indicates Category G1 (>= 90 mL/min/1.73 m2) Lab Interpretation (test code = 51344-9) Abnormal [facility] [place], TXGLYCOSYLATED HEMOGLOBIN (A1C)2023-02-13 23:15:57* Test Item Value Reference Range Interpretation Comme nts HGB A1C (test code = 4548-4) 8.3 % 4.0-5.7 H SALOMÓN (test code = SALOMÓN) Reference RangesNormal: <5.7%Prediabetes: 5.7 - 6.4%Diabetes: > 6.5% Lab Interpretation (test code = 62490-4) Abnormal [facility] [place], TXGLYCOSYLATED HEMOGLOBIN (A1C)2023-02-13 23:15:57* Test Item Value Reference Range Interpretation Comme nts HGB A1C (test code = 4548-4) 8.3 % 4.0-5.7 H SALOMÓN (test code = SALOMÓN) Reference RangesNormal: <5.7%Prediabetes: 5.7 - 6.4%Diabetes: > 6.5% Lab Interpretation (test code = 56915-0) Abnormal [facility] WITH [id number] 23:13:04* Test Item Value Reference Range Interpretation [...] g/dL 31.6-35.1 L RDW-SD (test code = 02704-4) 45.7 fL 39.0-49.9 RDW-CV (test code = 788-0) 16.4 % 12.0-15.5 H PLT (test code = 777-3) 310 See_Comment [Automated messa ge] The system which generated this result transmitted reference range: 166 - 358 10*3/?L. The reference range was not used to interpret this result as normal/abnormal. MPV (test code = 04534-4) 10.6 fL 9.5-12.9 NRBC/100 WBC (test code = 1659856102) 0.0 See_Comment [Automated [employer] ssage] The system which generated this result transmitted reference range: 0.0 - 10.0 /100 WBCs. The reference range was not used to interpret this result as normal/abnormal. NRBC x10^3 (test code = 4871626017) See_Comment [Automated messa ge] The system which generated this result transmitted reference range: 10*3/?L. The reference range was not used to interpret this result as normal/abnormal. GRAN MAT (NEUT) % (test code = 770-8) 42.4 % IMM GRAN % (test code = 3759505099) 0.10 % LYMPH % (test code = 736-9) 35.9 % MONO % (test code = 5905-5) 6.4 % EOS % (test code = 713-8) 14.0 % BASO % (test code = 706-2) 1.2 % GRAN MAT x10^3(ANC) (test code = 6864610875) 2.84 10*3/uL 1.88-7.09 IMM GRAN x10^3 (test code = 4333277483) 0.00-0.06 LYMPH x10^3 (test code = 731-0) 2.41 10*3/uL 1.32-3.29 MONO x10^3 (test code = 742-7) 0.43 10*3/uL 0.33-0.92 EOS x10^3 (test code = 711-2) 0.94 10*3/uL 0.03-0.39 H BASO x10^3 (test code = 704-7) 0.08 10*3/uL 0.01-0.07 H Lab Interpretation (test code = 13518-8) Abnormal [facility] WITH [id number] 23:13:04* Test Item Value Reference Range Interpretation [...] g/dL 31.6-35.1 L RDW-SD (test code = 82193-2) 45.7 fL 39.0-49.9 RDW-CV (test code = 788-0) 16.4 % 12.0-15.5 H PLT (test code = 777-3) 310 See_Comment [Automated messa ge] The system which generated this result transmitted reference range: 166 - 358 10*3/?L. The reference range was not used to interpret this result as normal/abnormal. MPV (test code = 38275-6) 10.6 fL 9.5-12.9 NRBC/100 WBC (test code = 3758605522) 0.0 See_Comment [Automated [employer] ssage] The system which generated this result transmitted reference range: 0.0 - 10.0 /100 WBCs. The reference range was not used to interpret this result as normal/abnormal. NRBC x10^3 (test code = 7591186461) See_Comment [Automated Given.toa ge] The system which generated this result transmitted reference range: 10*3/?L. The reference range was not used to interpret this result as normal/abnormal. GRAN MAT (NEUT) % (test code = 770-8) 42.4 % IMM GRAN % (test code = 4855163351) 0.10 % LYMPH % (test code = 736-9) 35.9 % MONO % (test code = 5905-5) 6.4 % EOS % (test code = 713-8) 14.0 % BASO % (test code = 706-2) 1.2 % GRAN MAT x10^3(ANC) (test code = 4170691395) 2.84 10*3/uL 1.88-7.09 IMM GRAN x10^3 (test code = 6607691414) 0.00-0.06 LYMPH x10^3 (test code = 731-0) 2.41 10*3/uL 1.32-3.29 MONO x10^3 (test code = 742-7) 0.43 10*3/uL 0.33-0.92 EOS x10^3 (test code = 711-2) 0.94 10*3/uL 0.03-0.39 H BASO x10^3 (test code = 704-7) 0.08 10*3/uL 0.01-0.07 H Lab Interpretation (test code = 19358-6) Abnormal [facility] [place], [place] Notes Date/Time Note Provider Source 2023-04-06 12:15:28 [id number] eFvR5+wb/WuL6 O0GMs/8POHFWxdmEASp+0SlT/aAYeJH00 31-03-29T12:15:28 Images from the original note were not included.Requested RenewalstraMADoL 50 mg tabletSig: Take 1 tablet by mouth 2 (two) times daily with meals as needed for Pain (scale 7-10). Indications: chronic pain, RA/OADisp: 60 tablet Refills: 1Start: 04/06/2023lass: eRXFor: Primary osteoarthritis involving multiple joints; Rheumatoid arthritis involving multiple sites, unspecified whether rheumatoid factor presentLast ordered: 1 month ago (02/23/2023) by hSoshana Everett, NPControlled Substance Lrzpgb1904/06/2023 12:01 PMProtocol Details Valid encounter within last 3 monthsPain agreement on fileThis refill cannot be delegated 61211-8Nnhvyydal encounter FaftLF3086-87-23Y26:15:36Telephon e encounter [id number]. [id number] for patient rxbx76255-9AjkoBZUACEOCMDDBrmlnns ed C-CDA narrative [id number] M Serrano MA[address] [id number]30-81- 29T12:15:361.2.840.278107.1.72.3. 15|1.2.840.384076.1.13.104.2.7.2. [id number] Indira Mina MA [facility]
[2023-04-28 14:01] LABS: Absolute Lymphocytes (CBC) 2.6 K/uL (0.7-4.9); Hematocrit 30.5 % (36.0-45.0); Lymphocytes % 41.5 % (15.3-44.8); MPV 8.7 fL (7.6-11.3); Platelets 337 thou/uL (152-406); RBC Red Blood Cell Count 4.18 M/uL (3.86-4.86)
[2023-04-28 14:11] LABS: SARS-CoV-2 Antigen Rapid Res Negative (Negative)
--- NOTE | 2023-04-28 14:25 | RAD REPORT ---
EXAM DESCRIPTION: RAD - Chest Pa And Lat (2 Views) - 04/28/2023 2:00 pm CLINICAL HISTORY: COUGH COMPARISON: Chest Single View dated 03/28/2023; Chest Pa And Lat (2 Views) dated 12/13/2021; Chest Pa And Lat (2 Views) dated 11/22/2021 TECHNIQUE: PA and lateral views of the chest were obtained. FINDINGS: The lungs are clear. Heart size is normal and central vasculature is within normal limits. No pleural effusion or pneumothorax seen. No acute bony finding noted. IMPRESSION: No acute cardiopulmonary process.
[2023-04-28 14:28] LABS: Magnesium 1.5 mg/dL (1.6-2.4); Potassium 2.9 mEq/L (3.5-5.1)
--- NOTE | 2023-04-28 15:16 | ER ---
Nurse's Notes [facility] Name: Anne-Marie Luz Age: 73 yrs Sex: Female : 1950 Arrival Date: 04/28/2023 Time: 12:58 Bed 16 Private MD: Diagnosis: Acute upper respiratory infection, unspecified;Hypokalemia;Hypomagnesemia Presentation: 04/28 13:12 Chief complaint: Patient states: Cough for about 2 weeks, white phlegm, malaise. Denies hb fever. Seen in urgent care on , given steroid injection and rx as well as Tessalon pearls and neb treatments. But has not gotten better. Coronavirus screen: Vaccine status: Patient reports receiving the 2nd dose of the covid vaccine. Ebola Screen: Patient denies travel to an Ebola-affected area in the 21 days before illness onset. Initial Sepsis Screen: Does the patient meet any 2 criteria? No. Patient's initial sepsis screen is negative. Does the patient have a suspected source of infection? No. Patient's initial sepsis screen is negative. Risk Assessment: Do you want to hurt yourself or someone else? Patient reports no desire to harm self or others. Onset of symptoms was April 14, 2023. 13:12 Method Of Arrival: Ambulatory hb 13:12 Acuity: LUIS FELIPE 3 hb Historical: - Allergies: 13:16 No Known Allergies; hb - PMHx: 13:16 diabetes mellitus; Hypercholesterolemia; Hypertensive disorder; osteoarthritis; hb - PSHx: 13:16 Hernia repair (Unknown); Hysterectomy (Unknown); hb - Immunization history:: Client reports receiving the 2nd dose of the Covid vaccine. - Social history:: Smoking status: Patient denies any tobacco usage or history of. Screenin:30 [facility] ED Fall Risk Assessment (Adult) History of falling in the last 3 months, ko1 including since admission No falls in past 3 months (0 pts) Confusion or Disorientation No (0 pts) Intoxicated or Sedated No (0 pts) Impaired Gait Yes (1 pt) Mobility Assist Device Used Yes (1 pt) Altered Elimination No (0 pt) Score/Fall Risk Level 0 - 2 = Low Risk Oriented to surroundings, Maintained a safe environment, Educated pt \T\ family on fall prevention, incl call for assistance when getting out of bed, Assessed \T\ reinforced patient's understanding of fall precautions, Provided non-skid footwear, Hourly rounding (assess needs \T\ fall precautionary measures) done, Used ambulatory aids as needed (educated on \T\ assisted with), Used gait belt as appropriate. Abuse screen: Denies threats or abuse. Denies injuries from another. Nutritional screening: No deficits noted. Tuberculosis screening: No symptoms or risk factors identified. Assessment: 13:30 General: Appears in no apparent distress. comfortable. Pain: Denies pain. Respiratory: ko1 Reports cough that is non-productive, persistent. Vital Signs: 13:12 BP 138 / 76; Pulse 74; Resp 18; Pulse Ox 94% ; Weight 72.12 kg; Height 5 ft. 1 in. ; hb 13:30 BP 128 / 74; Pulse 71; Resp 16; Pulse Ox 96% ; ko1 15:49 BP 132 / 76; Pulse 68; Resp 14; Pulse Ox 99% ; ko1 13:12 Body Mass Index 30.04 (72.12 kg, 154.94 cm) hb ED Course: 13:00 Patient arrived in ED. im 13:01 Chey Castano PA-C is PHCP. sb4 13:01 Dean Parker MD is Attending Physician. sb4 13:16 Triage completed. hb 13:18 Arm band placed on right wrist. hb 13:19 Ana Marie, RN is Primary Nurse. ko1 13:30 Patient has correct armband on for positive identification. Bed in low position. Call ko1 light in reach. Side rails up X2. Adult w/ patient. Client placed on continuous cardiac and pulse oximetry monitoring. NIBP monitoring applied. 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 Door closed. Noise minimized. Lights dimmed. Warm blanket given. 13:30 Inserted saline lock: 22 gauge in left antecubital area, using aseptic technique. Blood ko1 collected. 13:42 Flu Sent. ko1 13:42 SARS RAPID Sent. ko1 13:58 BMP Sent. ko1 13:58 CBC with Diff Sent. ko1 13:58 Magnesium Sent. ko1 14:02 XRAY Chest Pa And Lat (2 Views) In Process Unspecified. EDMS 15:16 Jeanmarie Farley MD is Referral Physician. sb4 15:49 Provided Education on: na. ko1 15:49 No provider procedures requiring assistance completed. ko1 16:04 IV discontinued, intact, bleeding controlled, No redness/swelling at site. Pressure ko1 dressing applied. Administered Medications: 14:46 Drug: NS 0.9% IV 1000 ml IV at 1 bolus Per protocol; 1000 mL bolus Route: IV; Rate: 1 ko1 bolus; Site: left antecubital; 15:44 Follow up: Response: No adverse reaction; IV Status: Completed infusion; IV Intake: ko1 1000ml 14:46 Drug: Magnesium Sulfate IVPB 1 grams IVPB once over 1 hrs Route: IVPB; Infused Over: 1 ko1 hrs; Site: left antecubital; 15:43 Follow up: Response: No adverse reaction ko1 16:14 Follow up: Response: No adverse reaction; IV Status: Completed infusion ko1 14:46 Drug: Potassium PO Effervescent Tablet 50 mEq PO once; dissolve in 4 ounces of water or ko1 juice Route: PO; 15:44 Follow up: Response: No adverse reaction ko1 15:00 Drug: Potassium Chloride IV 20 mEq IV at calculated rate once; administer over 1-2 ko1 hours Route: IV; Rate: calculated rate; Site: left antecubital; 16:13 Follow up: Response: No adverse reaction; IV Status: Completed infusion ko1 Medication: 13:30 VIS not applicable for this client. ko1 Intake: 15:44 IV: 1000ml; Total: 1000ml. ko1 Outcome: 15:16 Discharge ordered by . sb4 16:14 Discharged to home ambulatory, with family, ko1 16:14 Condition: improved 16:14 Discharge instructions given to patient, family, Instructed on discharge instructions, follow up and referral plans. medication usage, Demonstrated understanding of instructions, follow-up care, medications, Prescriptions given X 2, 16:15 Patient left the ED. ko1 Signatures: Dispatcher [employer] EDMS Floresita Carey RN RN hb Oliver, Kathy, RN RN ko1 Chey Castano PA-C PA-C sb4 Jennifer Quiorz Corrections: (The following items were deleted from the chart) 13:18 13:12 Coronavirus screen: Vaccine status: hb hb 15:48 11:44 Potassium Chloride IV 20 mEq IV at calculated rate in left antecubital ko1 ko1
--- NOTE | 2023-04-28 15:16 | EDPHYS ---
Physician Documentation [facility] Name: Anne-Marie Luz Age: 73 yrs Sex: Female : 1950 Arrival Date: 04/28/2023 Time: 12:58 Bed 16 Private MD: ED Physician Dean Parker HPI: 04/28 13:30 This 73 yrs old Female presents to ER via Ambulatory with complaints of Cough. sb4 13:30 The patient or guardian reports cough, that is constant, with productive sputum, that sb4 is white. Onset: The symptoms/episode began/occurred 2 week(s) ago. Modifying factors: The symptoms are alleviated by nebulizer treatment, steroids. Associated signs and symptoms: Pertinent negatives: chest pain, fever, rhinorrhea, sore throat. 13:40 2 weeks cough. been taking steroids and tessalon perles from urgent care, not getting sb4 better. has not had swabs or CXR done. no fever, chills, sore throat. Historical: - Allergies: 13:16 No Known Allergies; hb - PMHx: 13:16 diabetes mellitus; Hypercholesterolemia; Hypertensive disorder; osteoarthritis; hb - PSHx: 13:16 Hernia repair (Unknown); Hysterectomy (Unknown); hb - Immunization history:: Client reports receiving the 2nd dose of the Covid vaccine. - Social history:: Smoking status: Patient denies any tobacco usage or history of. ROS: 13:35 Constitutional: Negative for fever, chills, and weight loss, sb4 13:35 Respiratory: Positive for cough, with white sputum, wheezing, 13:35 All other systems are negative, Exam: 13:35 Constitutional: This is a well developed, well nourished patient who is awake, alert, sb4 and in no acute distress. Head/Face: Normocephalic, atraumatic. Eyes: Extra-ocular motions intact. Periorbital areas with no swelling, redness, or edema. ENT: Mucous membranes moist. Cardiovascular: Regular rate and rhythm with a normal S1 and S2. Abdomen/GI: Soft, non-tender, no distension. Skin: Warm, dry with normal turgor. Normal color with no rashes, no lesions, and no evidence of cellulitis. MS/ Extremity: Pulses equal, no cyanosis. Neurovascular intact. Full, normal range of motion. Neuro: Awake and alert, GCS 15, oriented to person, place, time, and situation. Motor strength 5/5 in all extremities. Sensory grossly intact. 13:35 Respiratory: the patient does not display signs of respiratory distress, Respirations: normal, Breath sounds: wheezing: expiratory that is mild, is heard diffusely, Vital Signs: 13:12 BP 138 / 76; Pulse 74; Resp 18; Pulse Ox 94% ; Weight 72.12 kg; Height 5 ft. 1 in. ; hb 13:30 BP 128 / 74; Pulse 71; Resp 16; Pulse Ox 96% ; ko1 15:49 BP 132 / 76; Pulse 68; Resp 14; Pulse Ox 99% ; ko1 13:12 Body Mass Index 30.04 (72.12 kg, 154.94 cm) hb MDM: 13:21 Patient medically screened. sb4 13:35 Differential Diagnosis: Bronchitis Influenza Upper Respiratory Infection Viral Syndrome sb4 Pneumonia. 15:15 Data reviewed: vital signs, nurses notes, lab test result(s), radiologic studies, and sb4 as a result, I will discharge patient. Consideration of Admission/Observation Escalation of care including admission/observation considered. Historians other than the Patient: Daughter/Son: daughter. Care significantly affected by the following chronic conditions: Diabetes, Hypertension. Counseling: I had a detailed discussion with the patient and/or guardian regarding the historical points, exam findings, and any diagnostic results supporting the discharge/admit diagnosis, lab results, radiology results, the need for outpatient follow up, a freedom of information officer, to return to the emergency department if symptoms worsen or persist or if there are any questions or concerns that arise at home. ED course: patient already on steroids, not improving, wheezing on exam. questionable history of COPD. will treat with abx with pulm follow up.. 04/28 13:29 Order name: BMP; Complete Time: 14:29 sb4 04/28 13:29 Order name: CBC with Diff; Complete Time: 14:28 sb4 04/28 13:29 Order name: Magnesium; Complete Time: 14:29 sb4 04/28 13:29 Order name: SARS RAPID; Complete Time: 14:12 sb4 04/28 13:29 Order name: Flu; Complete Time: 14:28 sb4 04/28 13:29 Order name: XRAY Chest Pa And Lat (2 Views); Complete Time: 14:28 sb4 04/28 13:29 Order name: Cardiac monitoring; Complete Time: 13:38 sb4 04/28 13:29 Order name: IV Saline Lock; Complete Time: 13:58 sb4 04/28 13:29 Order name: Labs collected and sent; Complete Time: 13:58 sb4 04/28 13:29 Order name: O2 Sat Monitoring; Complete Time: 13:38 sb4 Administered Medications: 14:46 Drug: NS 0.9% IV 1000 ml IV at 1 bolus Per protocol; 1000 mL bolus Route: IV; Rate: 1 ko1 bolus; Site: left antecubital; 15:44 Follow up: Response: No adverse reaction; IV Status: Completed infusion; IV Intake: ko1 1000ml 14:46 Drug: Magnesium Sulfate IVPB 1 grams IVPB once over 1 hrs Route: IVPB; Infused Over: 1 ko1 hrs; Site: left antecubital; 15:43 Follow up: Response: No adverse reaction ko1 16:14 Follow up: Response: No adverse reaction; IV Status: Completed infusion ko1 14:46 Drug: Potassium PO Effervescent Tablet 50 mEq PO once; dissolve in 4 ounces of water or ko1 juice Route: PO; 15:44 Follow up: Response: No adverse reaction ko1 15:00 Drug: Potassium Chloride IV 20 mEq IV at calculated rate once; administer over 1-2 ko1 hours Route: IV; Rate: calculated rate; Site: left antecubital; 16:13 Follow up: Response: No adverse reaction; IV Status: Completed infusion ko1 Disposition Summary: 04/28/23 15:16 Discharge Ordered Notes: Location: Home sb4 Problem: an ongoing problem sb4 Symptoms: have improved sb4 Condition: Stable sb4 Diagnosis - Acute upper respiratory infection, unspecified sb4 - Hypokalemia sb4 - Hypomagnesemia sb4 Followup: sb4 - With: Jeanmarie Farley MD - When: 2 - 3 days - Reason: Recheck today's complaints, Re-evaluation by your physician Discharge Instructions: - Discharge Summary Sheet sb4 - Hypomagnesemia sb4 - Upper Respiratory Infection, Adult, Uwcs-[id number]-Yfbm sb4 - Cough, Adult sb4 - Hypokalemia sb4 Forms: - Medication Reconciliation Form sb4 - Thank You Letter sb4 - Antibiotic Education sb4 - Prescription Opioid Use sb4 - Patient Portal Instructions sb4 - Leadership Thank You Letter sb4 Prescriptions: - dextromethorphan HBr 15 mg/5 mL Oral liquid - take 5 milliliter ORAL route every 4 to 6 hours as needed for cough; 100 sb4 milliliter; Refills: 0, Product Selection Permitted - Augmentin 875-125 mg Oral Tablet - take 1 tablet ORAL route every 12 hours for 10 days; 20 tablet; Refills: 0, sb4 Product Selection Permitted Addendum: 04/30/2023 15:34 I was immediately available for consultation during this patient's visit. I did not e c2 personally see the patient or discuss the patient with the BERNARDO. . Signatures: Dispatcher [employer] Floresita Harry RN RN Ana Marie RN RN koChey Rodas, PAJem PAJem sb4 Dean Parker MD MD ec2
[2023-04-28 20:21] VITALS: BP 132/76; O2SAT 99
== END ==
LOC: ER 12:58
DX: J06.9 Acute upper respiratory infection, unspecified (principal); E87.6 Hypokalemia; E83.42 Hypomagnesemia; R05.9 Cough, unspecified; R53.81 Other malaise; I10 Essential (primary) hypertension; E11.9 Type 2 diabetes mellitus without complications; E78.00 Pure hypercholesterolemia, unspecified; Z11.52 Encounter for screening for COVID-19
CPT/HCPCS: 96365; 85025; 80048; 36415; 83735; 87804 ×2; 71046; 99285; 87811; J3480; J3475; J7030